=== PATIENT | female | born 1970 | race Caucasian/White ===

== ENCOUNTER 2016-12-08 13:48 | Emergency (ER) | payer OTHER ==
[2016-12-08 14:00] VITALS: BP 113/54; PULSE 71; RESP 18; TEMP 98.4
--- NOTE | 2016-12-08 14:59 | XR ---
EXAMINATION TYPE: XR foot complete LT DATE OF EXAM: 12/08/2016 2:44 PM COMPARISON: NONE HISTORY: 46-year-old female with pain, dropped 15 pound weight on forefoot, pain involving the tarsal s and first and second digits. TECHNIQUE: 3 views FINDINGS: There is mild hallux valgus with early bunion formation. Incidental bipartite tibial sesamoid. No acu te fracture, subluxation, or dislocation. Midfoot alignment is maintained. IMPRESSION: No acute osseous abnormality seen.
[2016-12-08] MEDS ORDERED: IBUPROFEN 600 MG TAB PO STA (15:07)
--- NOTE | 2016-12-08 15:08 | ED ---
General Adult HPI - General Chief complaint: Extremity Injury, Lower Stated complaint: foot injury Time Seen by Provider: 12/08/16 14:27 Source: patient, RN notes reviewed Mode of arrival: ambulatory Limitations: no limitations - History of Present Illness Initial comments: Patient 46-year-old female who presents emergency room today with a chief complaint of an injury to the left foot. Does admit she was working out today and asked family dropped to 15 pound weight onto her left great toe. Does admit pain locally. Denies any other complaints associated symptoms. Patient denies any recent fever, chills, shortness of breath, chest pain, back pain, abdominal pain, nausea or vomiting, numbness or tingling, dysuria or hematuria, constipation or diarrhea, headaches or visual changes, or any other complaints. - Related Data Home Medications Medication Instructions Recorded Confirmed Citalopram Hydrobromide [CeleXA] 40 mg PO DAILY 09/21/15 09/21/15 Previous Rx's Medication Instructions Recorded Ibuprofen [Motrin] 600 mg PO Q8HR PRN #30 tab 09/21/15 Ibuprofen [Motrin] 600 mg PO Q6HR PRN #40 day 12/08/16 Allergies Allergy/AdvReac Type Severity Reaction Status Date / Time amoxicillin Allergy Unknown Verified 12/08/16 13:59 Review of Systems ROS Statement: Those systems with pertinent positive or pertinent negative responses have been documented in the HPI. ROS Other: All systems not noted in ROS Statement are negative. Past Medical History Past Medical History: No Reported History History of Any Multi-Drug Resistant Organisms: None Reported Past Surgical History: Section, Cholecystectomy, Hysterectomy Past Psychological History: Depression Smoking Status: Former smoker Past Alcohol Use History: Rare Past Drug Use History: None Reported General Exam - General Exam Comments Initial Comments: General: The patient is awake and alert, in no distress, and does not appear acutely ill. Neck: The neck is supple, there is no tenderness or JVD. Cardiovascular: There is a regular rate and rhythm. No murmur, rub or gallop is appreciated. Respiratory: Lungs are clear to auscultation, respirations are non-labored, breath sounds are equal. No wheezes, stridor, rales, or rhonchi. Musculoskeletal: Patient does have moderate bruising swelling over the first and second digit of the left foot. Locally tender in these areas and at the MCP joint area. Patient's sensation intact pulses equal bilaterally 2+. Strength 5/5. Neurological: A&O x 3. CN II-XII intact, There are no obvious motor or sensory deficits. Coordination appears grossly intact. Speech is normal. Skin: Skin is warm and dry and no rashes or lesions are noted. Psychiatric: Normal mood and affect. Limitations: no limitations Course Vital Signs 12/08/16 13:57 Temperature 98.4 F Pulse Rate 71 Respiratory 18 Rate Blood Pressure 113/54 O2 Sat by Pulse 98 Oximetry Medical Decision Making - Medical Decision Making X-rays reviewed shows no acute fracture dislocation. Results were discussed with patient. Patient placed in postop shoe advised ice elevate and started on anti-inflammatories. Advised follow-up in 7-10 days if symptoms persist for repeat x-rays. Disposition Clinical Impression: Foot contusion Disposition: HOME SELF-CARE Condition: Good Instructions: Foot Contusion (ED) Additional Instructions: Please continue to ice elevate the affected areas 4 times daily for 20 minutes at a time. Please use ibuprofen for pain. Please follow-up in 7-10 days if symptoms persist for repeat x-rays. Prescriptions: Ibuprofen [Motrin] 600 mg PO Q6HR PRN #40 day PRN Reason: Pain Referrals: Royer Jacques DO [Primary Care Provider] - 1-2 days Yogesh Espinosa DO [Doctor of Osteopathic Medicine] - 1-2 days Time of Disposition: 15:07
== END 2016-12-08 15:19 | disposition home or self-care (01) ==
LOC: EC 13:48
DX: S90.32XA Contusion of left foot, initial encounter (principal); F32.9 Major depressive disorder, single episode, unspecified; Z87.891 Personal history of nicotine dependence; Z79.899 Other long term (current) drug therapy; Z88.0 Allergy status to penicillin; W20.8XXA Other cause of strike by thrown, projected or falling object, initial encounter; Y92.89 Other specified places as the place of occurrence of the external cause
CPT/HCPCS: 99283

== ENCOUNTER 2017-02-08 17:17 | Emergency (ER) | payer OTHER ==
[2017-02-08 17:36] VITALS: BP 117/55; PULSE 74; RESP 20; TEMP 97.5
[2017-02-08] MEDS ORDERED: methylPREDNISolone SOD SUCCI 125 MG/2 ML VIAL IM ONE (17:48)
[2017-02-08] MEDS ORDERED: hydrOXYzine HCL 25 MG TAB PO STA (18:00)
--- NOTE | 2017-02-08 18:18 | ED ---
General Adult HPI - General Chief complaint: Skin/Abscess/Foreign Body Stated complaint: Rash Time Seen by Provider: 02/08/17 17:40 Source: patient, RN notes reviewed Mode of arrival: ambulatory Limitations: no limitations - History of Present Illness Initial comments: Chief complaint history of present illness a 46-year-old female reports that she has extensive poison trudy rash. Proximally one week ago she was outside working on the shrubs and developed poison trudy which is now on her face chest arms. She's tried [id number] medications which aren't helping. She does have a history of being sensitive to poison trudy. - Related Data Home Medications Medication Instructions Recorded Confirmed Citalopram Hydrobromide [CeleXA] 40 mg PO HS 02/08/17 02/08/17 Dextroamphetamine/Amphetamine 30 mg PO QAM 02/08/17 02/08/17 [Adderall Xr] diphenhydrAMINE HCL [Benadryl] 25 mg PO Q6H PRN 02/08/17 02/08/17 Previous Rx's Medication Instructions Recorded hydrOXYzine HCL [Atarax] 25 mg PO TID PRN #15 tab 02/08/17 predniSONE 10 mg PO DAILY #31 tab 02/08/17 Allergies Allergy/AdvReac Type Severity Reaction Status Date / Time amoxicillin Allergy Unknown Verified 02/08/17 17:45 Review of Systems ROS Statement: Those systems with pertinent positive or pertinent negative responses have been documented in the HPI. Review of systems no change in visual acuity but she does have some irritation around the right eye. No shortness of breath no chest pain no nausea no vomiting no diarrhea. All systems are reviewed. Past medical problems none. The patient's surgeries include , cholecystectomy. Patient's family history has COPD and glaucoma. Patient has ALLERGIES to amoxicillin and poison trudy. The patient nonsmoker drinks alcohol socially. ROS Other: All systems not noted in ROS Statement are negative. Past Medical History Past Medical History: No Reported History History of Any Multi-Drug Resistant Organisms: None Reported Past Surgical History: Section, Cholecystectomy, Hysterectomy Past Psychological History: Depression Smoking Status: Former smoker Past Alcohol Use History: Rare Past Drug Use History: None Reported General Exam - General Exam Comments Initial Comments: General: The patient is awake and alert, moderate distress because of poison trudy on her arms chest small on her face. Vital signs show temperature 97.5 pulse 74 respiratory rate 20 pulse ox on percent room air blood pressure 117/55 Eye: No complaint of visual acuity problems or pain. She does have itching around her eyes. Neck: Several areas of poison trudy rash on her neck Cardiovascular: Areas of poison trudy on her chest but no complaint chest pain or palpitations Respiratory: Lungs clear to auscultation no wheezing. Musculoskeletal: Rash on upper or lower extremities, poison trudy. Skin: Extensive poison trudy rash. Limitations: no limitations Course Vital Signs 02/08/17 17:35 Temperature 97.5 F L Pulse Rate 74 Respiratory 20 Rate Blood Pressure 117/55 O2 Sat by Pulse 100 Oximetry Medical Decision Making - Medical Decision Making Medical decision-making. The patient received a shot of steroids in the emergency room as well as by mouth Atarax. At home she'll be placed on a decreasing dose of prednisone. Advised to use topical Caladryl. Wet washcloths is over the area in order to decrease itch. Disposition Clinical Impression: Poison trudy dermatitis Disposition: HOME SELF-CARE Condition: Fair Instructions: Contact Dermatitis (ED), Poison Trudy (ED) Additional Instructions: Take prednisone on a decreasing dose as directed over. At time. Use Caladryl to decrease itch. Try oatmeal baths. Follow-up with family physician. Use Atarax for itch Prescriptions: hydrOXYzine HCL [Atarax] 25 mg PO TID PRN #15 tab PRN Reason: Itchiness predniSONE 10 mg PO DAILY #31 tab Time of Disposition: 18:17
== END 2017-02-08 18:30 | disposition home or self-care (01) ==
LOC: EC 17:17
DX: L23.7 Allergic contact dermatitis due to plants, except food (principal); F32.9 Major depressive disorder, single episode, unspecified; Z87.891 Personal history of nicotine dependence; Z79.899 Other long term (current) drug therapy; Z88.0 Allergy status to penicillin
CPT/HCPCS: 99282; 96372; J2930

== ENCOUNTER → 2018-02-02 | Outpatient (CLI) | payer OTHER ==
--- NOTE | 2018-02-04 08:05 | MM ---
Reason for exam: screening (asymptomatic). History: Patient is postmenopausal. Benign excisional biopsy of the right breast, 1995. Physical Findings: A clinical breast exam by your physician is recommended on an annual basis and results should be correlated with mammographic findings. MG Screening Mammo w CAD Bilateral CC and MLO view(s) were taken. No prior studies available for comparison. The breast tissue is heterogeneously dense. This may lower the sensitivity of mammography. 1.8cm mass posterior lower inner quadrant left breast. Otherwise, no discrete abnormality. ASSESSMENT: Incomplete: need additional imaging evaluation, BI-RAD 0 RECOMMENDATION: Special view mammogram of the left breast. If lesion persists on supplemental views, image directed ultrasound is recommended. [facility] will attempt to contact patient to return for supplemental views and ultrasound if indicated.
== END | disposition home or self-care (01) ==
LOC: RADMAMWWP 07:33
PROVIDERS: ATTEND Family Medicine
DX: Z12.31 Encounter for screening mammogram for malignant neoplasm of breast (principal)
CPT/HCPCS: 77067

== ENCOUNTER → 2018-02-10 | Outpatient (CLI) | payer OTHER ==
--- NOTE | 2018-02-10 10:25 | MM ---
Reason for exam: additional evaluation requested from abnormal screening. Last mammogram was performed less than 1 month ago. History: Patient is postmenopausal. Benign excisional biopsy of the right breast, 1995. Physical Findings: Nurse did not find any significant physical abnormalities on exam. MG Work Up Mamm w CAD LT Spot compression CC, spot compression ML, and LM view(s) were taken of the left breast. Prior study comparison: February 02, 2018, bilateral MG screening mammo w CAD. Finding: There is a 18 mm equal density (isodense), oval mass in the lower inner quadrant of the left breast. These results were verbally communicated with the patient and result sheet given to the patient on 02/10/18. ASSESSMENT: Incomplete: need additional imaging evaluation, BI-RAD 0 RECOMMENDATION: Ultrasound of the left breast.
--- NOTE | 2018-02-10 10:28 | USB ---
Reason for exam: additional evaluation requested from abnormal screening. History: Patient is postmenopausal. Benign excisional biopsy of the right breast, 1995. US Breast Workup Limited LT Left breast ultrasound demonstrates a 0.8 x 0.5 x 1.0cm lobular, solid, hypoechoic lesion at the posterior nipple. These results were verbally communicated with the patient and result sheet given to the patient on 02/10/18. ASSESSMENT: Suspicious, BI-RAD 4 RECOMMENDATION: Ultrasound core biopsy of the left breast. Called Dr. Jacques's office with mammographic findings and has scheduled an appointment for the patient for 02/25/18 at 10:[address] Cervantes. Biopsy scheduled for 02/11/18 at 10:00. PRELIMINARY REPORT CALLED AND FAXED TO DR. CERVANTES ON 02/10/18.
== END | disposition home or self-care (01) ==
LOC: RADMAMWWP 08:17
PROVIDERS: ATTEND Family Medicine
DX: R92.8 Other abnormal and inconclusive findings on diagnostic imaging of breast (principal)
CPT/HCPCS: 77065

== ENCOUNTER → 2018-02-10 | Outpatient (CLI) | payer OTHER ==
--- NOTE | 2018-02-10 09:49 | US ---
EXAMINATION TYPE: US abdomen limited DATE OF EXAM: 02/10/2018 COMPARISON: US & CT CLINICAL HISTORY: Abnormal Liver Functions Results R94.5. Elevated LFT's EXAM MEASUREMENTS: Liver Length: 15.7 cm CBD: 0.8 cm Right Kidney: 11.8 x 4.4 x 4.7 cm Pancreas: Limited by bowel gas. Visualized portions of the pancreatic head within normal limits. Liver: No evidence of mass. Mild coarsened pattern to the liver. Gallbladder: Surgically absent Evidence for sonographic Francisco's sign: No CBD: wnl for post jasmin Right Kidney: wnl, lower pole gassed out IMPRESSION: 1. Postcholecystectomy changes with no definite acute process. 2. Mildly coarsened pattern to the liver may be related to mild fatty infiltration or hepatitis corre late clinically
== END ==
LOC: RADUSWWP 08:14
PROVIDERS: ATTEND Family Medicine
DX: R94.5 Abnormal results of liver function studies (principal); Z90.49 Acquired absence of other specified parts of digestive tract
CPT/HCPCS: 76705

== ENCOUNTER → 2018-02-11 | Day surgery (SDC) | payer OTHER ==
[2018-02-11 09:39] VITALS: BP 122/57; PULSE 64; RESP 16; TEMP 98.5; BMI 26.7
--- NOTE | 2018-02-11 14:46 | USB ---
EXAMINATION TYPE: US biopsy breast add'l VAD LT, US biopsy breast VAD LT, MG diagnostic mammo LT wo CAD DATE OF EXAM: 02/11/2018 CLINICAL HISTORY: R92.8 ABNORMAL MAMMOGRAM. TECHNIQUE: Ultrasound guided core biopsy of left breast. COMPARISON: Exams dating back to 02/02/2018 FINDINGS: Preprocedural ultrasound redemonstrated the retroareolar 0.8 x 0.5 x 1.0 cm hypoechoic lesion within the left breast for which biopsy was recommended on the exam of 02/10/2018 (site B). However, when comparing this to the mammographic density seen on the exam of 02/10/2018 this appears to be unrelated as the mammographic density posterior depth. Therefore further preprocedural scanning was performed. Additional abnormality at posterior depth was also seen at the 6:00 position and discussion of 2 site biopsy was had with the patient for which the patient consented (site A). The procedure of ultrasound guided core biopsy was explained to the patient. Benefits, alternatives, and risks were discussed. An informed consent was then obtained. Preprocedural timeout was performed. Site A: The patient was placed in supine positioning for imaging and for the procedure. The overlying skin was prepped and draped in usual sterile fashion. 10 cc of lidocaine was used as anesthetic into the skin and subcutaneous tissue up to the deeper lesion at the 6:00 position within the left breast corresponding to the mammographic focal asymmetry. Under ultrasound guidance, a 12-gauge vacuum assisted biopsy gun device was used to obtain 5 core samples. Following this, a ribbon-shaped biopsy marker was left in lesion. Site B: The patient was placed in supine positioning for imaging and for the procedure. The overlying skin was prepped and draped in usual sterile fashion. Lidocaine buffered with bicarbonate was used as anesthetic into the skin and subcutaneous tissue up to the 0.8 x 0.5 x 1.0 cm retroareolar left breast mass. Under ultrasound guidance, a 12-gauge vacuum assisted biopsy gun device was used to obtain 4 core samples. Following this, a coil-shaped biopsy marker was left in lesion. The patient tolerated the procedure well without any immediate complication. The patient was kept in the radiology department for short stay after the procedure and then discharged home in stable condition. Post procedure mammogram demonstrated both clips in appropriate position without migration. IMPRESSION: Successful, uncomplicated two site ultrasound guided core biopsy of area of concern in the left breast, full pathology results to follow. Note that site A corresponds to the mammographic focal asymmetry. Pathology Results: Benign A. BREAST, LEFT, SITE 1 ZONE C SIX O'CLOCK, CORE BIOPSY: PROLIFERATIVE FIBROCYSTIC CHANGES INCLUDING FIBROADENOMATOID HYPERPLASIA, SCLEROSING ADENOSIS , CYSTS AND MICROCALCIFICATIONS. PSEUODANGIOMATOUS STROMAL HYPERPLASIA (PASH). B. BREAST, LEFT, SITE 2 ZONE A SIX O'CLOCK CORE BIOPSY: FIBROCYSTIC CHANGES INCLUDING CYSTS, APOCRINE METAPLASIA, FIBROSIS AND RARE MICROCALCIFICATIONS. Recommendation Follow up ultrasound of the left breast in 6 months. MTDD
== END | disposition home or self-care (01) ==
LOC: RADUSWWP 08:56
PROVIDERS: ATTEND Surgery
DX: N64.89 Other specified disorders of breast (principal); N60.22 Fibroadenosis of left breast; N60.12 Diffuse cystic mastopathy of left breast; N60.82 Other benign mammary dysplasias of left breast; Z88.0 Allergy status to penicillin
CPT/HCPCS: 88305; 88342; 88341; 77065; 19083; 19084; A4648; J2001

== ENCOUNTER 2018-04-22 00:03 | Emergency (ER) | payer OTHER ==
[2018-04-22 00:15] VITALS: TEMP 98.8
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
[2018-04-22 01:08] VITALS: BP 139/79; PULSE 84; RESP 20
== END 2018-04-22 00:50 | disposition home or self-care (01) ==
LOC: EC 00:03
DX: S80.212A Abrasion, left knee, initial encounter (principal); F32.9 Major depressive disorder, single episode, unspecified; F41.9 Anxiety disorder, unspecified; F90.9 Attention-deficit hyperactivity disorder, unspecified type; Z87.891 Personal history of nicotine dependence; Z88.0 Allergy status to penicillin; V49.49XA Driver injured in collision with other motor vehicles in traffic accident, initial encounter; Y92.410 Unspecified street and highway as the place of occurrence of the external cause
CPT/HCPCS: 99284

== ENCOUNTER → 2018-10-27 | Outpatient (CLI) | payer OTHER ==
--- NOTE | 2018-10-27 15:57 | XR ---
EXAMINATION TYPE: XR shoulder complete RT DATE OF EXAM: 10/27/2018 CLINICAL HISTORY: Pain after lifting injury. TECHNIQUE: Three views of the right shoulder are obtained. COMPARISON: Right humerus x-ray September 21, 2015 FINDINGS: There is no acute fracture/dislocation evident in the right shoulder. The acromioclavicul ar and glenohumeral joint spaces appear within normal limits. The visualized ribs are intact and unr emarkable. IMPRESSION: There is no acute fracture or dislocation in the right shoulder.
== END | disposition home or self-care (01) ==
LOC: RADXRMAIN 15:27
PROVIDERS: ATTEND Emergency Medicine
DX: S43.401A Unspecified sprain of right shoulder joint, initial encounter (principal); R20.9 Unspecified disturbances of skin sensation

== ENCOUNTER → 2018-11-05 | Outpatient (CLI) | payer OTHER ==
--- NOTE | 2018-11-06 14:46 | MR ---
EXAMINATION TYPE: MR shoulder RT wo con DATE OF EXAM: 11/05/2018 COMPARISON: X-ray 10/27/2018 HISTORY: Injured rt shoulder throwing out garbage 2 wks ago TECHNIQUE: Multiplanar, multisequence imaging of the right shoulder is performed without contrast. FINDINGS: Rotator Cuff: There is edema signal at the musculotendinous junction of the supraspinatus tendon comp atible tendinopathy and intramuscular strain. No through thickness tear. No retraction of any of the rotator cuff tendons. Acromioclavicular Joint: There is AC joint hypertrophy with mild impingement of the musculotendinous junction of the supraspinatus muscle. Glenohumeral Joint: Joint space preserved. No sizable joint effusion. Glenohumeral ligaments intact. Labrum: The labrum appears grossly intact given limitation of non-arthrogram study. Biceps Tendon: The long head of biceps is in normal location within bicipital groove. Bone marrow signal: A tiny cystic areas involving the humeral head and the related to chronic impinge ment or reactive. IMPRESSION: There is edema involving the musculotendinous junction of the supraspinatus compatible tendinosis and intramuscular strain. Impingement secondary to hypertrophy of the AC joint.
== END | disposition home or self-care (01) ==
LOC: RADMRIMAIN 20:27
PROVIDERS: ATTEND Emergency Medicine
DX: M25.811 Other specified joint disorders, right shoulder (principal); R20.9 Unspecified disturbances of skin sensation

== ENCOUNTER 2024-07-23 22:32 | Inpatient (IN) | payer BC, OTHER ==
[2024-07-23 22:37] LABS: Glucose,Whole Blood 101 mg/dL (70-110)
[2024-07-23] MEDS: SODIUM CHLORIDE 0.9% 1,000 ML IV STA (22:46)
[2024-07-23 22:48] LABS: Basophils % (A) 0 %; Eosinophils # (A) 0.3 k/uL (0-0.7); Eosinophils % (A) 3 %; HCT 42.1 % (34.0-46.0); HGB 13.7 gm/dL (11.4-16.0); Lymphocytes # (A) 2.1 k/uL (1.0-4.8); Lymphocytes % (A) 25 %; MCH 29.8 pg (25.0-35.0); MCHC 32.5 g/dL (31.0-37.0); MCV 91.9 fL (80.0-100.0); Mean Platelet Volume 7.5; Monocytes # (A) 0.5 k/uL (0-1.0); Monocytes % (A) 5 %; Neutrophils # (A) 5.5 k/uL (1.3-7.7); Neutrophils % (A) 65 %; Platelet Count 344 k/uL (150-450); RBC 4.59 m/uL (3.80-5.40); RDW 12.3 % (11.5-15.5); WBC 8.5 k/uL (3.8-10.6)
[2024-07-23 23:02] LABS: ALT 17 U/L (4-34); Acetaminophen <10.0 ug/mL; African American GFR (CKD) >90 (>60 ml/min/1.73 sqM); Alcohol <10 mg/dL; Anion Gap 5 mmol/L; Blood Urea Nitrogen 10 mg/dL (7-17); Calcium 9.4 mg/dL (8.4-10.2); Carbon Dioxide 29 mmol/L (22-30); Chloride 105 mmol/L (98-107); Glucose 105 mg/dL (74-99); Non-African American GFR(CKD) >90 (>60 ml/min/1.73 sqM); Salicylate <1.0 mg/dL; Sodium 139 mmol/L (137-145); Total Bilirubin 0.7 mg/dL (0.2-1.3); Total Protein 6.4 g/dL (6.3-8.2)
[2024-07-23 23:10] LABS: AST 28 U/L (14-36); Alkaline Phosphatase 57 U/L (38-126); Potassium 3.7 mmol/L (3.5-5.1)
[2024-07-23 23:23] LABS: Amphetamine Screen,Urine Not Detected (NotDetected); Barbiturate Screen,Urine Not Detected (NotDetected); Benzodiazepines Screen,Urine Not Detected (NotDetected); Cocaine Screen,Urine Not Detected (NotDetected); Methadone Screen, Urine Not Detected (NotDetected); Opiate Screen,Urine Not Detected (NotDetected); Oxycodone Screen, Urine Not Detected (NotDetected); Phencyclidine Screen,Urine Not Detected (NotDetected); Tricyclic Antidepressant,Urine Not Detected (NotDetected); Urn Cannabinoid Scrn Detected (NotDetected)
[2024-07-24] MEDS ORDERED: NALOXONE 0.4 MG/ML 1 ML VIAL IV PRN (00:57)
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
[2024-07-24] MEDS: SODIUM CHLORIDE 0.9% 1,000 ML IV SCH (01:09)
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
--- NOTE | 2024-07-24 14:38 | P.CN ---
Psychiatric Consult - . Consult date: 07/24/24 Consult:: 07/24/24 13:24 IDENTIFYING DATA: This patient is a 54-year-old female, currently lives with her in a house, they also live with one of her kids. She claims that she has a total of 4 kids. Currently works at the hotel as a first front ventilator. REASON FOR REFERRAL: Psychiatry was consulted for suicide attempt by overdose HISTORY OF PRESENT ILLNESS: The patient presented to the hospital initially on 07/24 with intentional overdose on Wellbutrin. According to ER report patient apparently texted her sister after the overdose and claimed that it was a suicide attempt. EMS was immediately called and brought her into the hospital. Patient did not describe the quantity of Wellbutrin that she took. Urine drug send is positive for THC. Patient was seen laying in bed today agreeable to speak to teletypewriter installer. She was fairly vague guarded, claims that she did try to commit suicide. States that she has been diagnosed with several different mental health diagnoses in the past and does not know which one she has. Claims that she has been given way too many pills in the past. States that she is upset at her and claims that a "girl was sending me pictures" of herself and her , she suspects that maybe her is cheating on her. Claims that she never got to confront her about it. States that she has been feeling overwhelmed, depressed. Also endorsing anxiety. States that the girl h as been harassing her putting different pictures on her over the Internet and Facebook. Claims that after the overdose she tried to just go to sleep. At this time patient denies any homical ideations, intent or plan. Patient denies any auditory, visual hallucinations and denies any paranoia or delusions. She is currently endorsing suicidal thoughts, no intent or plan. Patients admits to using marijuana daily heavily. Denies any other recreational drug use PAST PSYCHIATRIC HISTORY: Patient has a a history of unknown psychiatric illness. Patient is currently on Wellbutrin, unknown dose. States that she was last psychiatrically admitted to the mental health unit in [facility] 31 years ago. Patient denies any psychiatric outpatient follow-up. States that she overdosed on pills 31 years ago. PAST MEDICAL HISTORY: Past Medical History: No Reported History History of Any Multi-Drug Resistant Organisms: None Reported Past Surgical History: Section, Cholecystectomy, Hysterectomy Past Anesthesia/Blood Transfusion Reactions: No Reported Reaction Past Psychological History: ADD/ADHD, Anxiety, Depression Past Alcohol Use History: Occasional Past Drug Use History: None Reported ALLERGIES: as per EMR. CHEMICAL DEPENDENCY HISTORY: as per HPI. FAMILY PSYCHIATRIC/SUBSTANCE USE HISTORY: That her brother and also mother has some form of mental illness SOCIAL HISTORY: Patient was born and raised in [facility]. She states that she completed high school and did some college, claims that she did go to snf once in the past for unpaid tickets. States that she has 4 kids, currently is with her and 1 child. She currently works at a hotel at the front tender. MENTAL STATUS EXAM: General Appearance: Patient appears to be somewhat sleepy, stated age is vague and guarded. Patient appears to have fair hygiene and grooming wearing hospital gown with poor eye contact. Behavior: Patient is calmly lying in bed without any agitated behavior. Vague. Speech: Patient's speech is fluent and nonpressured. Mood/Affect: Patient reports their mood is "depressed anxious", affect is congruent and constricted Suicidality/Homicidality: Patient denies having any suicidal or homicidal ideation intent or plan. Perceptions: Patient denies any visual hallucinations and denies any auditory hallucinations Though content/process: There is no evidence of any delusional thought content and thought process is linear and goal-directed. [place]. Poverty of content Memory and concentration: AOX3, grossly intact for the purposes of this session. Can spell "WORLD" backwards Judgment and insight: Poor IMPRESSIONS: Suicide attempt by overdose on psychiatric medications Mood disorder unspecified, rule out bipolar disorder versus major depressive disorder Cannabis use disorder PLAN: -At this time patient DOES meet criteria for inpatient psychiatric admission. -Would recommend the following medication changes/additions: Will hold off on psychiatric medications until patient is medically cleared and admitted to the mental health unit. -Continue 1:1 sitter for safety till patient is safely transferred to the mental health unit. -Cannot leave AMA at this time. Patient will need a petition and certification if attempting to leave AMA. -Internal Auditor spoke with patient about substance abuse and the harmful effects on medical and mental health, patient verbally understood and agreed. -When medically stable, patient is eligible for transfer to a psych bed when available. -Communicated plan to patient's nurse -Psychiatry will sign off at this time -Please contact with any questions. 07/24/24 14:33 07/24/24 14:36
--- NOTE | 2024-07-24 15:06 | P.PN ---
Progress Note - Text Progress Note Date: 07/24/24 (delayed charting seen at 1000) Seen and examined at bedside in the emergency department endorses taking excess buprenorphine and Benadryl in the hope to attempt to take her life. Reports a headache and lethargy. Denies nausea, vomiting, or abdominal pain. Case discussed with nursing. Will order one-to-one sitter. Monitor on telemetry for 24 hours. For progress note from this date see H&P.
[2024-07-24] MEDS: ACETAMINOPHEN TAB 325 MG TAB PO PRN (18:15)
[2024-07-25 08:44] LABS: Basophils # (A) 0.05 X 10*3/uL (0.00-0.10); Basophils % (A) 1.1 %; Eosinophils # (A) 0.22 X 10*3/uL (0.04-0.35); Eosinophils % (A) 4.7 %; HCT 42.7 % (37.2-46.3); HGB 13.7 g/dL (12.0-15.0); Lymphocytes # (A) 1.33 X 10*3/uL (0.90-5.00); Lymphocytes % (A) 28.1 %; MCH 29.9 pg (27.0-32.0); MCHC 32.1 g/dL (32.0-37.0); MCV 93.2 FL (80.0-97.0); Monocytes # (A) 0.42 X 10*3/uL (0.20-1.00); Monocytes % (A) 8.9 %; NRBC Per 100 WBC 0 X 10*3/uL (0.00-0.01); Platelet Count 293 X 10*3/uL (140-440); RBC 4.58 X 10*6/uL (4.10-5.20); RDW 12.3 % (11.5-14.5); WBC 4.73 X 10*3/uL (4.50-10.00)
[2024-07-25 08:56] LABS: Blood Urea Nitrogen 4.2 mg/dL (9.0-27.0); Carbon Dioxide 26.6 mmol/L (21.6-31.8); Chloride 107 mmol/L (96-109); Glucose 84 mg/dL (70-110); Potassium 4.2 mmol/L (3.5-5.5); Sodium 143 mmol/L (135-145)
--- NOTE | 2024-07-25 13:38 | P.DS ---
Providers Date of admission: 07/24/24 00:57 Expected date of discharge: 07/25/24 Attending physician: Machelle Brandt MD Consults: 07/24/24 00:57 Consult Physician Urgent Consulting Provider: Maximilian Trujillo Consult Reason/Comments: suicide attempt Do you want consulting provider notified?: Yes Primary care physician: Stated None Hospital Course: 54 year old F with PMH of depression presents to the ED after overdosing on Bupropion. In the ED she underwent extensive evaluation. BP 152/86, HR 62, T 97F, RR 16, 96% on RA. CBC and CMP significant for glu 105. Mag 1.7. HGC negative. UDS + THC. Salicylate, Acetaminophen, EtOH negative. EKG sinus rhythm QTc 421. Patient admitted to the medical floor. Evaluated by psychiatry with recommendations for inpatient psyc. 07/25 Patient was seen and examined. No complaints. CBC and BMP significant for BUN 4.2, BUN/Cr 6. Plans for discharge to mental health. General: non toxic, no distress, appears at stated age Derm: warm, dry Head: atraumatic, normocephalic, symmetric Eyes: EOMI, no lid lag, anicteric sclera Mouth: no lip lesion, mucus membranes moist Cardiovascular: good distal perfusion in all 4 extremities Lungs: breathing comfortably, no accessory muscle use Ext: no gross muscle atrophy, no edema, no contractures Psych: Alert, oriented, appropriate affect, tearful Discharge Diagnosis: Bupropion overdose History of anxiety/depression This complex discharge took 35 minutes to complete. Patient Condition at Discharge: Stable Plan - Discharge Summary New Discharge Prescriptions: Discontinued buPROPion XL [Wellbutrin XL] 300 mg PO DAILY Follow up Appointment(s)/Referral(s): [facility] [NON-STAFF] - 1 Week [facility] [NON-STAFF] - 1 Week None,Stated [Primary Care Provider] - 1-2 days Discharge/Stand Alone Forms: Area PCPs
[2024-07-25] MEDS ORDERED: LORazepam 1 MG TAB PO PRN (20:11)
[2024-07-25] MEDS ORDERED: MAG HYDROX/AL HYDROX/SIMETH 355 ML BOTTLE PO PRN (20:11)
[2024-07-25] MEDS ORDERED: MAGNESIUM HYDROXIDE 2,400 MG/30 ML CUP PO PRN (20:11)
[2024-07-25] MEDS ORDERED: ACETAMINOPHEN TAB 325 MG TAB PO PRN (20:11)
[2024-07-25] MEDS ORDERED: LORazepam 2 MG/ML INJ IM PRN (20:11)
[2024-07-25] MEDS ORDERED: traZODone HCL 50 MG TAB PO PRN (20:11)
[2024-07-26 08:06] LABS: ALT 15 U/L (4-34); AST 24 U/L (14-36); Albumin 4.1 g/dL (3.5-5.0); Alkaline Phosphatase 63 U/L (38-126); Bilirubin, Delta 0.2 mg/dL (0.0-0.2); Bilirubin,Unconjugated 0.8 mg/dL (0.0-1.1); Total Protein 6.6 g/dL (6.3-8.2)
--- NOTE | 2024-07-26 12:33 | P.HP ---
Psychiatric H&P - . H&P Date: 07/26/24 History & Physical: Allergies Allergy/AdvReac Type Severity Reaction Status Date / Time amoxicillin Allergy Unknown Verified 07/24/24 09:23 Vital Signs Temp 98.6 F 07/26/24 06:55 Pulse 69 07/26/24 06:55 Resp 16 07/26/24 06:55 BP 111/57 07/26/24 06:55 Pulse Ox 99 07/26/24 06:55 FiO2 Intake & Output 07/25/24 07/26/24 07/26/24 18:59 06:59 18:59 Weight 74.843 kg Laboratory Last Values WBC 4.73 X 10*3/uL (4.50-10.00) 07/25/24 05:38 RBC 4.58 X 10*6/uL (4.10-5.20) 07/25/24 05:38 Hgb 13.7 g/dL (12.0-15.0) 07/25/24 05:38 Hct 42.7 % (37.2-46.3) 07/25/24 05:38 MCV 93.2 FL (80.0-97.0) 07/25/24 05:38 MCH 29.9 pg (27.0-32.0) 07/25/24 05:38 MCHC 32.1 g/dL (32.0-37.0) 07/25/24 05:38 RDW 12.3 % (11.5-14.5) 07/25/24 05:38 Plt Count 293 X 10*3/uL (140-440) 07/25/24 05:38 MPV 10.0 FL (9.5-12.2) 07/25/24 05:38 Immature Gran % (Auto) 0.20 % 07/25/24 05:38 Absolute Nucleated RBC 0 % 07/25/24 05:38 Neutrophils % 57.0 % 07/25/24 05:38 Lymphocytes % 28.1 % 07/25/24 05:38 Monocytes % 8.9 % 07/25/24 05:38 Eosinophils % 4.7 % 07/25/24 05:38 Basophils % 1.1 % 07/25/24 05:38 Immature Gran # 0.01 X 10*3/uL (0.00-0.04) 07/25/24 05:38 Neutrophils # 2.70 X 10*3/uL (1.80-7.70) 07/25/24 05:38 Lymphocytes # 1.33 X 10*3/uL (0.90-5.00) 07/25/24 05:38 Monocytes # 0.42 X 10*3/uL (0.20-1.00) 07/25/24 05:38 Eosinophils # 0.22 X 10*3/uL (0.04-0.35) 07/25/24 05:38 Basophils # 0.05 X 10*3/uL (0.00-0.10) 07/25/24 05:38 NRBC/100 WBC Diff 0 X 10*3/uL (0.00-0.01) 07/25/24 05:38 Sodium 143 mmol/L (135-145) 07/25/24 05:38 Potassium 4.2 mmol/L (3.5-5.5) 07/25/24 05:38 Chloride 107 mmol/L (96-109) 07/25/24 05:38 Carbon Dioxide 26.6 mmol/L (21.6-31.8) 07/25/24 05:38 Anion Gap 9.40 mmol/L (4.00-12.00) 07/25/24 05:38 BUN 4.2 mg/dL (9.0-27.0) L 07/25/24 05:38 Creatinine 0.7 mg/dL (0.6-1.5) 07/25/24 05:38 Est GFR (CKD-EPI) 104 (>=60) 07/25/24 05:38 Est GFR (CKD-EPI)AfAm >90 (>60 ml/min/1.73 sqM) 07/23/24 22:43 Est GFR (CKD-EPI)NonAf >90 (>60 ml/min/1.73 sqM) 07/23/24 22:43 BUN/Creatinine Ratio 6.00 Ratio (12.00-20.00) L 07/25/24 05:38 Glucose 84 mg/dL (70-110) 07/25/24 05:38 POC Glucose (mg/dL) 101 mg/dL (70-110) 07/23/24 22:36 POC Glu Reproduction Artist SANA Mccormick 07/23/24 22:36 Plasma Lactic Acid Robbie 1.0 mmol/L (0.7-2.0) 07/23/24 22:43 Calcium 9.0 mg/dL (8.7-10.3) 07/25/24 05:38 Magnesium 1.7 mg/dL (1.6-2.3) 07/23/24 22:57 Total Bilirubin 1.0 mg/dL (0.2-1.3) 07/26/24 07:21 Conjugated Bilirubin 0.0 mg/dL (0.0-0.3) 07/26/24 07:21 Unconjugated Bilirubin 0.8 mg/dL (0.0-1.1) 07/26/24 07:21 Delta Bilirubin 0.2 mg/dL (0.0-0.2) 07/26/24 07:21 AST 24 U/L (14-36) 07/26/24 07:21 ALT 15 U/L (4-34) 07/26/24 07:21 Alkaline Phosphatase 63 U/L (38-126) 07/26/24 07:21 Total Protein 6.6 g/dL (6.3-8.2) 07/26/24 07:21 Albumin 4.1 g/dL (3.5-5.0) 07/26/24 07:21 TSH 1.380 mIU/L (0.465-4.680) 07/26/24 07:21 Urine HCG, Qual Not Detected (Not Detectd) 07/23/24 22:57 Salicylates <1.0 mg/dL 07/23/24 22:43 Urine Opiates Screen Not Detected (NotDetected) 07/23/24 22:57 Ur Oxycodone Screen Not Detected (NotDetected) 07/23/24 22:57 Urine Methadone Screen Not Detected (NotDetected) 07/23/24 22:57 Acetaminophen <10.0 ug/mL 07/23/24 22:43 Ur Barbiturates Screen Not Detected (NotDetected) 07/23/24 22:57 U Tricyclic Antidepress Not Detected (NotDetected) 07/23/24 22:57 Ur Phencyclidine Scrn Not Detected (NotDetected) 07/23/24 22:57 Ur Amphetamines Screen Not Detected (NotDetected) 07/23/24 22:57 U Methamphetamines Scrn Not Detected (NotDetected) 07/23/24 22:57 U Benzodiazepines Scrn Not Detected (NotDetected) 07/23/24 22:57 Urine Cocaine Screen Not Detected (NotDetected) 07/23/24 22:57 U Marijuana (THC) Screen Detected (NotDetected) H 07/23/24 22:57 Serum Alcohol <10 mg/dL 07/23/24 22:43 SARS-CoV-2 (PCR) Not Detected (Not Detectd) 07/25/24 17:13 07/26/24 09:14 IDENTIFYING DATA: Patient is a This patient is a 54-year-old female, currently lives with her in a house, they also live with one of her kid s. She claims that she has a total of 4 kids. 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 HPI: The patient presented to the hospital initially on 07/24 with intentional overdose on Wellbutrin. Psychology was consulted, as per consult note, "According to ER report patient apparently texted her sister after the overdose and claimed that it was a suicide attempt. EMS was immediately called and brought her into the hospital. Patient did not describe the quantity of Wellbutrin that she took. Urine drug send is positive for THC. Patient was seen laying in bed today agreeable to speak to medical writer. She was fairly vague guarded, claims that she did try to commit suicide. States that she has been diagnosed with several different mental health diagnoses in the past and does not know which one she has. Claims that she has been given way too many pills in the past. States that she is upset at her and claims that a "girl was sending me pictures" of herself and her , she suspects that maybe her is cheating on her. Claims that she never got to confront her about it. States that she has been feeling overwhelmed, depressed. Also endorsing anxiety. States that the girl has been harassing her putting different pictures on her over the Internet and Facebook. Claims that after the overdose she tried to just go to sleep. At this time patient denies any homical ideations, intent or plan. Patient denies any auditory, visual hallucinations and denies any paranoia or delusions. She is currently endorsing suicidal thoughts, no intent or plan. Patients admits to using marijuana daily heavily. Denies any other recreational drug use". Upon today's assessment, patient was seen resting in her room, and agreeable to speak to the medical writer in the office. She states that what caused this incident is that someone who is infatuated with her was harassing her online and through text. She tried talking to her , and that wasn't going well, so she took all her medicine. She called her sister and told her good bye. Then she woke up in the hospital. She took wellbutrin and benedryl. She states it was an attempt at suicide. She thought the pills would stop her heart. She is frustrated and depressed, and don't want to feel like this anymore. She endorses anxiety. She states her appetite is not that great, and has not been for good for a year. She states she wants to feel better, and is agreeable to treatment. PAST PSYCHIATRIC HISTORY: Patient has a a history of unknown psychiatric illness. Patient is currently on Wellbutrin, unknown dose. States that she was last psychiatrically admitted to the mental health unit in [facility] 31 years ago. Patient denies any psychiatric outpatient follow-up. States that she overdosed on pills 31 years ago. PMH:As per ER note ALLERGIES: as per EMR CHEMICAL DEPENDENCY HISTORY: as per HPI FAMILY PSYCHIATRIC/SUBSTANCE USE HISTORY: That her brother and also mother has some form of mental illness SOCIAL HISTORY: Patient was born and raised in [facility]. She states that she completed high school and did some college, claims that she did go to skilled nursing once in the past for unpaid tickets. States that she has 4 kids, currently is with her and 1 child. 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 MENTAL STATUS EXAM: General Appearance: Patient appears to be somewhat sleepy, stated age Cooperative. Patient appears to have fair hygiene and grooming wearing hospital gown with adequate eye contact. Behavior: Patient is calmly seated without any agitated behavior. Speech: Patient's speech is fluent and nonpressured. Mood/Affect: Patient reports their mood is "depressed, anxious", affect is congruent and constricted Suicidality/Homicidality: Patient denies having any suicidal or homicidal ideation intent or plan. Perceptions: Patient denies any visual hallucinations and denies any auditory hallucinations Though content/process: There is no evidence of any delusional thought content and thought process is linear and goal-directed. Memory and concentration: AOX3, grossly intact for the purposes of this session. Can spell "WORLD" backwards Judgment and insight: fair STRENGTHS/WEAKNESSES: strength is that patient is [resilient]. Weakness is that patient [has poor judgment and is impulsive] INTELLECT: [average] IMPRESSIONS: Suicide attempt by overdose on psychiatric medications Mood disorder unspecified, rule out bipolar disorder versus major depressive disorder Cannabis use disorder PLAN: -Patient is admitted under [voluntary] status to MHU for stabilization of psychiatric symptoms and safety. Patient has signed adult voluntary form and medication consent and is placed in patient's chart. -Medications : Will start patient on Zoloft 50mg daily for depression/anxiety, trazodone 25mg qhs prn for sleep, seroquel 25mg qhs for sleep/mood -Ativan [and Haldol] PRN for agitation/aggression [-Patient was counselled on substance abuse and desired to cut back on use] -Patient was informed of the risks, benefits and side effects of the medication [and patient verbally consented to taking the medications. ] -Internal Medicine consult to perform medical evaluation and physical. -NRT - [nicotine patch] -SW on board for discharge planning. Encourage patient to participate in groups to work on coping skills. 07/26/24 12:04 07/26/24 12:31
[2024-07-26] MEDS: SERTRALINE 50 MG TAB PO SCH (13:27)
[2024-07-26] MEDS: NICOTINE 14MG/24HR PATCH TRANSDERM SCH (13:28)
[2024-07-26 15:32] LABS: Chol/HDL Ratio 3.39 Ratio; LDL Cholesterol,Calculated 130.8 mg/dL (0.0-131.0); VLDL Calculation 15.84 mg/dL (5.00-40.00)
[2024-07-26] MEDS ORDERED: QUEtiapine 50 MG TAB PO SCH (21:00)
[2024-07-26] MEDS: QUEtiapine 25 MG TAB PO SCH (21:09)
--- NOTE | 2024-07-27 00:33 | P.CONS ---
History of Present Illness - Reason for Consult Consult date: 07/26/24 - History of Present Illness The patient is a 54-year-old female with a PMH of anxiety and depression who had presented to the emergency room after intentional overdose on bupropion. The patient was initially admitted to the medicine service for monitoring and was subsequently transferred to the mental health unit where she was seen and evaluated while accompanied by a MHU RN. The patient reported feeling well at the time of interview and had no active complaints. She did report mild chronic low back pain which is unchanged. She also reported using marijuana Gummies occasionally and drinking alcohol socially but notes that she is not a daily drinker. Denies tobacco use. Denies experiencing chest discomfort, shortness breath, fever, chills, cough, nausea, vomiting, abdominal pain, diarrhea. Review of systems: Pertinent positives and negatives as discussed in HPI, a complete review of systems was performed and all other systems are negative. Physical examination: General: non toxic, no distress, appears at stated age, normal weight Derm: no unusual rashes/lesions, no unusual ecchymoses, warm, dry Head: atraumatic, normocephalic, symmetric Eyes: EOMI, no lid lag, anicteric sclera ENT: Nose and ears atraumatic, no thrush, no pharyngeal erythema Neck: trachea midline, supple Mouth: no lip lesion, mucus membranes moist Cardiovascular: S1S2 reg, no murmur, no edema Lungs: CTA bilateral, no rhonchi, no rales , no accessory muscle use Abdominal: soft, nontender to palpation, no guarding Ext: no gross muscle atrophy, no contractures, Neuro: No gross focal neuro deficits noted Psych: Alert, oriented, appropriate affect Assessment: Marijuana abuse Depression with intentional overdose Imaging: EKG from the medicine admission was reviewed showing sinus rhythm at 80 bpm with T wave flattening in the inferior leads. Data Review: Laboratory evaluation was reviewed with WBC count 4.7, hemoglobin 13.7, platelet count 293, sodium 143, potassium 4.2, glucose 104, with urine toxicology positiv e for marijuana. Plan: Advised on the importance of cessation Defer management of depression and suicidal ideation to the primary psychiatry service Thank you for allowing us to participate in the care of this patient. We will follow peripherally. Do not hesitate to contact us with questions. Someone can be reached from the [facility] hospitalist group at all hours of the day at [phone]. Past Medical History Past Medical History: No Reported History History of Any Multi-Drug Resistant Organisms: None Reported Past Surgical History: Section, Cholecystectomy, Hysterectomy Past Anesthesia/Blood Transfusion Reactions: No Reported Reaction Past Psychological History: ADD/ADHD, Anxiety, Depression Smoking Status: Former smoker Past Alcohol Use History: Occasional Past Drug Use History: None Reported Medications and Allergies Allergies Allergy/AdvReac Type Severity Reaction Status Date / Time amoxicillin Allergy Unknown Verified 07/24/24 09:23 Physical Exam Vitals: Vital Signs Temp Pulse Resp BP Pulse Ox 07/26/24 06:55 98.6 F 69 16 111/57 99 Results CBC & Chem 7: 07/25/24 05:38 07/25/24 05:38 Labs: Abnormal Lab Results - Last 24 Hours (Table) 07/26/24 Range/Units 07:21 Cholesterol 208.00 H (0.00-200.00) mg/dL HDL Cholesterol 61.40 H (40.00-60.00) mg/dL
[2024-07-27] MEDS ORDERED: hydrOXYzine pamoate 25 MG CAP PO PRN (10:24)
--- NOTE | 2024-07-27 10:58 | P.PN ---
Progress Note - Text Progress Note Date: 07/27/24 Interval History: Patient was seen [wandering the hallways] and was directable and agreeable to speak with story writer in the office. She states that she is very frustrated today. She states that things did not go well in group, because she does not feel that she can express things clearly. She is worried about her pets and her house. He sister is trying to help her, while she is in here. She states she is very irritable. She claims to have slept well last night. She is tearful at times. She states her appetite is good. At this time patient denies any suicidal or homicidal ideations, intent or plan. Patient denies any auditory, visual hallucinations and denies any paranoia or delusions. Patient denies any side effects from the medications and has been compliant with meds. MENTAL STATUS EXAM: General Appearance: Patient appears to be somewhat sleepy, stated age Cooperative. Patient appears to have fair hygiene and grooming wearing hospital gown with adequate eye contact. Behavior: Patient is calmly seated without any agitated behavior. Tearful at times Speech: Patient's speech is fluent and nonpressured. Mood/Affect: Patient reports their mood is "depressed, frustrated ", affect is congruent and constricted Suicidality/Homicidality: Patient denies having any suicidal or homicidal ideation intent or plan. Perceptions: Patient denies any visual hallucinations and denies any auditory hallucinations Though content/process: There is no evidence of any delusional thought content and thought process is linear and goal-directed. Memory and concentration: AOX3, grossly intact for the purposes of this session. Judgment and insight: fair IMPRESSIONS: Suicide attempt by overdose on psychiatric medications Mood disorder unspecified, rule out bipolar disorder versus major depressive disorder Cannabis use disorder PLAN: -Patient is admitted under [voluntary] status to MHU for stabilization of psychiatric symptoms and safety. Patient has signed adult voluntary form and medication consent and is placed in patient's chart. -Medications : increase Zoloft 75mg daily for depression/anxiety, trazodone 25mg qhs prn for sleep, increase seroquel 50mg qhs for sleep/mood add visteral 25mg q6 prn for anxiety -Ativan [and Haldol] PRN for agitation/aggression -NRT - [nicotine patch] -SW on board for discharge planning. Encourage patient to participate in groups to work on coping skills. will have social work assist patient in calling [employer] [facility] [employer] Sessions
[2024-07-27] MEDS: hydrOXYzine pamoate 25 MG CAP PO ONE (11:20)
[2024-07-27] MEDS: IBUPROFEN 600 MG TAB PO PRN (14:28)
[2024-07-27] MEDS: QUEtiapine 50 MG TAB PO SCH (21:02)
[2024-07-28] MEDS: SERTRALINE 50 MG TAB PO SCH (08:28)
--- NOTE | 2024-07-28 11:25 | P.PN ---
Progress Note - Text Progress Note Date: 07/28/24 Interval History: Patient was seen [wandering the hallways] and was directable and agreeable to speak with automobile and property underwriter in the office. She states that she is feeling a bit better today, that she feels calm and relaxed. She claims to have slept well last night. She states her appetite is good. She has been in touch with her , and he brought her clothes, and he got the animals picked up by [employer]. She stated that her sister is going to help her out upon discharge. Patient is attending groups. At this time patient denies any suicidal or homicidal ideations, intent or plan. Patient denies any auditory, visual hallucinations and denies any paranoia or delusions. Patient denies any side effects from the medications and has been compliant with meds. MENTAL STATUS EXAM: General Appearance: Patient appears to be stated age Cooperative. Patient appears to have fair hygiene and grooming casually dressed, with adequate eye contact. Behavior: Patient is calmly seated without any agitated behavior. Speech: Patient's speech is fluent and nonpressured. Mood/Affect: Patient reports their mood is "improving ", affect is congruent and constricted Suicidality/Homicidality: Patient denies having any suicidal or homicidal ideation intent or plan. Perceptions: Patient denies any visual hallucinations and denies any auditory hallucinations Though content/process: There is no evidence of any delusional thought content and thought process is linear and goal-directed. Memory and concentration: AOX3, grossly intact for the purposes of this session. Judgment and insight: improving mildly IMPRESSIONS: Suicide attempt by overdose on psychiatric medications Mood disorder unspecified, rule out bipolar disorder versus major depressive disorder Cannabis use disorder PLAN: -Patient is admitted under [voluntary] status to [facility] for stabilization of psychiatric symptoms and safety. Patient has signed adult voluntary form and medication consent and is placed in patient's chart. -Medications : Zoloft 75 mg daily for depression/anxiety, trazodone 25mg qhs prn for sleep, seroquel 50mg qhs for sleep/mood, vistaril 25mg q6 prn for anxiety -Ativan [and Haldol] PRN for agitation/aggression -NRT - [nicotine patch] -SW on board for discharge planning. Encourage patient to participate in groups to work on coping skills. likely discharge thursday back home if patient is improving psychiatrically.
--- NOTE | 2024-07-29 12:35 | P.PN ---
Progress Note - Text Progress Note Date: 07/29/24 Interval History: Patient was seen in the [facility] and was directable and agreeable to speak with check writer salesperson in the office. She states that she is feeling much better today, just a little foggy when she wakes up, however, she stated that she slept well last night. She states her appetite is better than it has been in a while. She states that she has been talking with her sister, about discharge, and she thinks that her sister is going to be staying with her upon discharge to help her out. Patient is attending groups. Plater Supervisor spoke with patient about switching her Zoloft to night time, patient agreeable. At this time patient denies any suicidal or homicidal ideations, intent or plan. Patient denies any auditory, visual hallucinations and denies any paranoia or delusions. Patient denies any side effects from the medications and has been compliant with meds. MENTAL STATUS EXAM: General Appearance: Patient appears to be stated age Cooperative. Patient appears to have fair hygiene and grooming casually dressed, with adequate eye contact. Behavior: Patient is calmly seated without any agitated behavior. Speech: Patient's speech is fluent and nonpressured. Mood/Affect: Patient reports their mood is "improving ", affect is congruent and constricted, improving mildly Suicidality/Homicidality: Patient denies having any suicidal or homicidal ideation intent or plan. Perceptions: Patient denies any visual hallucinations and denies any auditory hallucinations Though content/process: There is no evidence of any delusional thought content and thought process is linear and goal-directed. Memory and concentration: AOX3, grossly intact for the purposes of this session. Judgment and insight: improving mildly IMPRESSIONS: Suicide attempt by overdose on psychiatric medications Mood disorder unspecified, rule out bipolar disorder versus major depressive disorder Cannabis use disorder PLAN: -Patient is admitted under [voluntary] status to [facility]HU for stabilization of psychiatric symptoms and safety. Patient has signed adult voluntary form and medication consent and is placed in patient's chart. -Medications : increase and change Zoloft 100 mg qhs for depression/anxiety starting tomorrow night, trazodone 25mg qhs prn for sleep, seroquel 50mg qhs for sleep/mood, vistaril 25mg q6 prn for anxiety -Ativan [and Haldol] PRN for agitation/aggression -NRT - [nicotine patch] -SW on board for discharge planning. Encourage patient to participate in groups to work on coping skills. If patient is doing well over the weekend, will discharge Thursday, back home.
[2024-07-29] MEDS ORDERED: SERTRALINE 100 MG TAB PO SCH (21:00)
[2024-07-30 06:15] VITALS: RESP 17; TEMP 97.7
--- NOTE | 2024-07-30 13:25 | P.PN ---
Subjective Progress Note Date: 07/30/24 Principal diagnosis: IMPRESSIONS: . Suicide attempt by overdose on psychiatric medications Mood disorder unspecified, rule out bipolar disorder versus major depressive disorder Cannabis use disorder the patient came up to me in the [facility] and said "yeah and see me yet maybe we talk" she seemed quite eagerto talk. She says that she has a lifelong pattern of laying things down of forgetting where they are failure to hand in homework staring out the window in class having to reread pages because her mind gets distracted and more recently becoming totally agitated when she has another reminder of her poor memory he pulls all the pain and struggle of the past into that moment and she overreacts. She has troubled relationships because of the overreaction and because of the being angry at her for her forgetfulness. Her job function is impaired as a result. All this is caused some burnout so on top of her severe ADHD she also has dysthymic disorder and depression.she said that when she was on Adderall she did much better she was on Adderall the morningand Celexa at night, and someone didn't think that was a good combination so they stopped the Adderall. MENTAL STATUS EXAM: she became tearful when I reviewed with her the effects of adult ADHD and based good knowledge that they all give her much trouble. General Appearance: Patient appears to be stated age Cooperative. Patient appears to have fair hygiene and grooming casually dressed, with adequate eye contact. Behavior: Patient is calmly seated without any agitated behavior. Speech: Patient's speech is fluent and nonpressured. Mood/Affect: Patient reports their mood is "improving ", affect is congruent and constricted, improving mildly Suicidality/Homicidality: Patient denies having any suicidal or homicidal ideation intent or plan. Perceptions: Patient denies any visual hallucinations and denies any auditory hallucinations Though content/process: There is no evidence of any delusional thought content and thought process is linear and goal-directed. Memory and concentration: AOX3, grossly intact for the purposes of this session. Judgment and insight: improving mildly PLAN: she seems to be doing well and I do think that discharge Thursday as fine she is going to work with her outpatient doctor in regards to possible treatment for the ADHD the Zoloft already seems to be helping her with the burn out. -Patient is admitted under [voluntary] status to [facility] for stabilization of psychiatric symptoms and safety. Patient has signed adult voluntary form and medication consent and is placed in patient's chart. -Medications : increase and change Zoloft 100 mg qhs for depression/anxiety st arting tomorrow night, trazodone 25mg qhs prn for sleep, seroquel 50mg qhs for sleep/mood, vistaril 25mg q6 prn for anxiety -Ativan [and Haldol] PRN for agitation/aggression -NRT - [nicotine patch] -SW on board for discharge planning. Encourage patient to participate in groups to work on coping skills. If patient is doing well over the weekend, will discharge Thursday, back home Objective - Vital Signs Vital signs: Vital Signs Temp 97.7 F 07/30/24 06:00 Pulse 70 07/30/24 06:00 Resp 17 07/30/24 06:00 BP 120/73 07/30/24 06:00 Pulse Ox 97 07/30/24 06:00 FiO2 - Labs CBC & Chem 7: 07/25/24 05:38 07/25/24 05:38
[2024-07-30] MEDS: SERTRALINE 100 MG TAB PO SCH (20:53)
--- NOTE | 2024-07-31 10:17 | P.PN ---
Subjective Progress Note Date: 07/31/24 Principal diagnosis: IMPRESSIONS: . Suicide attempt by overdose on psychiatric medications Mood disorder unspecified, rule out bipolar disorder versus major depressive disorder Cannabis use disorder the patient came readily to talk to me. She was in her room lying down at about 10:00 said she felt kind of tired after practice. We reviewed the elements of ADHD and how to work with the system and her doctor to get a treatment. MENTAL STATUS EXAM:she is serious but pleasant and cooperative good eye contact gains patient and her normal General Appearance: Patient appears to be stated age Cooperative. Patient appears to have fair hygiene and grooming casually dressed, with adequate eye contact. Behavior: Patient is calmly seated without any agitated behavior. Speech: Patient's speech is fluent and nonpressured. Mood/Affect: Patient reports their mood is "improving ", affect is congruent and constricted, improving mildly Suicidality/Homicidality: Patient denies having any suicidal or homicidal ideation intent or plan. Perceptions: Patient denies any visual hallucinations and denies any auditory hallucinations Though content/process: There is no evidence of any delusional thought content and thought process is linear and goal-directed. Memory and concentration: AOX3, grossly intact for the purposes of this session. Judgment and insight: improving mildly PLAN: she seems to be doing well and I do think that discharge Thursday as fine she is going to work with her outpatient doctor in regards to possible treatment for the ADHD the Zoloft already seems to be helping her with the burn out. -Patient is admitted under [voluntary] status to [facility] for stabilization of psychiatric symptoms and safety. Patient has signed adult voluntary form and medication consent and is placed in patient's chart. -Medications : increase and change Zoloft 100 mg qhs for depression/anxiety starting tomorrow night, trazodone 25mg qhs prn for sleep, seroquel 50mg qhs for sleep/mood, vistaril 25mg q6 prn for anxiety -Ativan [and Haldol] PRN for agitation/aggression -NRT - [nicotine patch] -SW on board for discharge planning. Encourage patient to participate in groups to work on coping skills. If patient is doing well over the weekend, will discharge Thursday, back home Objective - Vital Signs Vital signs: Vital Signs Temp 97.7 F 07/30/24 06:00 Pulse 70 07/30/24 06:00 Resp 17 07/30/24 06:00 BP 120/73 07/30/24 06:00 Pulse Ox 97 07/30/24 06:00 FiO2 - Labs CBC & Chem 7: 07/25/24 05:38 07/25/24 05:38
[2024-08-01 06:41] VITALS: BP 94/55; PULSE 54
--- NOTE | 2024-08-01 19:05 | P.DS ---
Providers Date of admission: 07/25/24 20:02 Expected date of discharge: 08/01/24 Attending physician: Maximilian Trujillo MD Consults: 07/24/24 00:57 Consult Physician Urgent Consulting Provider: Maximilian Trujillo Consult Reason/Comments: suicide attempt Do you want consulting provider notified?: Yes 07/25/24 20:11 Consult Physician Routine Consulting Provider: [facility] Consult Reason/Comments: History and Physical Do you want consulting provider notified?: Yes Primary care physician: Stated None Hospital Course: Admission HPI: Admission note was completed by Dr. Trujillo: "IDENTIFYING DATA: Patient is a This patient is a 54-year-old female, currently lives with her in a house, they also live with one of her kids. She claims that she has a total of 4 kids. 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 HPI: The patient presented to the hospital initially on 07/24 with intentional overdose on Wellbutrin. Psychology was consulted, as per consult note, "According to ER report patient apparently texted her sister after the overdose and claimed that it was a suicide attempt. EMS was immediately called and brought her into the hospital. Patient did not describe the quantity of Wellbutrin that she took. Urine drug send is positive for THC. Patient was seen laying in bed today agreeable to speak to remote mortgage underwriter. She was fairly vague guarded, claims that she did try to commit suicide. States that she has been diagnosed with several different mental health diagnoses in the past and does not know which one she has. Claims that she has been given way too many pills in the past. States that she is upset at her and claims that a "girl was sending me pictures" of herself and her , she suspects that maybe her is cheating on her. Claims that she never got to confront her about it. States that she has been feeling overwhelmed, depressed. Also endorsing anxiety. States that the girl has been harassing her putting different pictures on her over the Internet and Facebook. Claims that after the overdose she tried to just go to sleep. At this time patient denies any homical ideations, intent or plan. Patient denies any auditory, visual hallucinations and denies any paranoia or delusions. She is currently endorsing suicidal thoughts, no intent or plan. Patients admits to using marijuana daily heavily. Denies any other recreational drug use". Upon today's assessment, patient was seen resting in her room, and agreeable to speak to the remote mortgage underwriter in the office. She states that what caused this incident is that someone who is infatuated with her was harassing her online and through text. She tried talking to her , and that wasn't going well, so she took all her medicine. She called her sister and told her good bye. Then she woke up in the hospital. She took wellbutrin and benedryl. She states it was an attempt at suicide. She thought the pills would stop her heart. She is frustrated and depressed, and don't want to feel like this anymore. She endorses anxiety. She states her appetite is not that great, and has not been for good for a year. She states she wants to feel better, and is agreeable to treatment. PAST PSYCHIATRIC HISTORY: Patient has a a history of unknown psychiatric illness. Patient is currently on Wellbutrin, unknown dose. States that she was last psychiatrically admitted to the mental health unit in [facility] 31 years ago. Patient denies any psychiatric outpatient follow-up. States that she overdosed on pills 31 years ago. PMH:As per ER note ALLERGIES: as per EMR CHEMICAL DEPENDENCY HISTORY: as per HPI FAMILY PSYCHIATRIC/SUBSTANCE USE HISTORY: That her brother and also mother has some form of mental illness SOCIAL HISTORY: Patient was born and raised in [facility]. She states that she completed high school and did some college, claims that she did go to [facility] in the past for unpaid tickets. States that she has 4 kids, currently is with her and 1 child. She currently works at a hotel at the frontload driver. MENTAL STATUS EXAM: General Appearance: Patient appears to be somewhat sleepy, stated age Cooperative. Patient appears to have fair hygiene and grooming wearing hospital gown with adequate eye contact. Behavior: Patient is calmly seated without any agitated behavior. Speech: Patient's speech is fluent and nonpressured. Mood/Affect: Patient reports their mood is "depressed, anxious", affect is congruent and constricted Suicidality/Homicidality: Patient denies having any suicidal or homicidal ideation intent or plan. Perceptions: Patient denies any visual hallucinations and denies any auditory hallucinations Though content/process: There is no evidence of any delusional thought content and thought process is linear and goal-directed. Memory and concentration: AOX3, grossly intact for the purposes of this session. Can spell "WORLD" backwards Judgment and insight: fair STRENGTHS/WEAKNESSES: strength is that patient is [resilient]. Weakness is that patient [has poor judgment and is impulsive] INTELLECT: Average IMPRESSIONS: Suicide attempt by overdose on psychiatric medications Mood disorder unspecified, rule out bipolar disorder versus major depressive disorder Cannabis use disorder PLAN: -Patient is admitted under [voluntary] status to MHU for stabilization of psychiatric symptoms and safety. Patient has signed adult voluntary form and medication consent and is placed in patient's chart. -Medications : Will start patient on Zoloft 50mg daily for depression/anxiety, trazodone 25mg qhs prn for sleep, seroquel 25mg qhs for sleep/mood -Ativan [and Haldol] PRN for agitation/aggression [-Patient was counselled on substance abuse and desired to cut back on use] -Patient was informed of the risks, benefits and side effects of the medication [and patient verbally consented to taking the medications. -Internal Medicine consult to perform medical evaluation and physical. -NRT - [nicotine patch] -SW on board for discharge planning. Encourage patient to participate in groups to work on coping skills. " Hospital course: Upon admission to the unit patient was directable and agreeable to commence treatment and signed adult voluntary formPatient got along well with other patients on the unit and followed unit protocol. Patient was compliant with the medications and denied any side effects throughout hospital course. Patient was started on Zoloft, Trazodone and Seroquel and titrated to effective doses listed below. Patient spoke of her stressors and engaged in therapy both group and individual. Patient was also seen by medical team for history and physical exam. Throughout the course of the hospitalization patient gradually improved with regards to mood, anxiety, sleep and returned back to their baseline level of functioning. On the day of discharge patient denied any suicidal or homicidal ideations intent or plan denied any auditory or visual hallucinations. Patient endorsed wanting to live for her health and family. The patient denied any access to guns or weapons. Patient denied any paranoia and did not endorse any delusions. Patient does have a significant history of substance abuse and was counseled on abstaining from all substances including alcohol and marijuana. Patient elected to do outpatient substance use treatment program through [facility]. Patient was also counseled on the medications and need for regular compliance and was encouraged to follow-up with their outpatient appointment for mental health and also for primary care. Prior to discharge a meeting with [facility] was held for discharge planning. Mental status exam: General Appearance: Patient appears to be stated age is alert, pleasant, and cooperative. Patient is in no acute distress and has improved hygiene and grooming Behavior: Patient is calmly seated without any agitated behavior. Speech: Patient's speech is fluent and non-pressured. Mood/Affect: Patient reports their mood is "[better]", affect is congruent and euthymic. Suicidality/Homicidality: Patient denies having any suicidal or homicidal ideation intent or plan. Perceptions: Patient denies any auditory or visual hallucinations. Though content/process: There is no evidence of any delusional thought content and thought process is linear and goal-directed, more future oriented Memory and concentration: AOX3, grossly intact for the purposes of this session. Can spell "WORLD" backwards correctly. Judgment and insight: improved with guarded prognosis Impression: Suicide attempt by overdose on psychiatric medications Mood disorder unspecified, rule out bipolar disorder versus major depressive disorder Cannabis use disorder Plan: -Continue with discharge today as patient has improved and stabilized psychiatrically and is not currently an imminent threat to [himself] and/or others. [Patient will remain at chronically elevated risk for harm to self and/or others due to his impulsivity and polysubstance abuse.] -Continue medications: Zoloft 100 mg QHS for depression Seroquel 50 mg QHS for mood/sleep -Patient was counseled on the need for medication compliance and appropriate follow-up at mental health and also primary care for medical issues. Patient verbalized understanding and agreed. -Social work also to arrange for patients follow up appointments with [facility] for psychiatric care along with follow up with primary care provider. -Patient counseled on abstaining from recreational drugs and marijuana and alcohol. Was informed/educated on the adverse effects on their physical and mental health. -Patient was instructed to return to the hospital or seek immediate medical care if their psychiatric or medical symptoms do worsen or reoccur. Vital Signs (72 hours) 07/30/24 07/31/24 08/01/24 06:00 16:11 06:41 Temperature 97.7 F Pulse Rate [ 70 94 54 L Left] Respiratory 17 Rate Blood Pressure 120/73 96/63 94/55 [Right Arm] O2 Sat by Pulse 97 Oximetry Laboratory Results WBC 4.73 X 10*3/uL (4.50-10.00) 07/25/24 05:38 RBC 4.58 X 10*6/uL (4.10-5.20) 07/25/24 05:38 Hgb 13.7 g/dL (12.0-15.0) 07/25/24 05:38 Hct 42.7 % (37.2-46.3) 07/25/24 05:38 MCV 93.2 FL (80.0-97.0) 07/25/24 05:38 MCH 29.9 pg (27.0-32.0) 07/25/24 05:38 MCHC 32.1 g/dL (32.0-37.0) 07/25/24 05:38 RDW 12.3 % (11.5-14.5) 07/25/24 05:38 Plt Count 293 X 10*3/uL (140-440) 07/25/24 05:38 MPV 10.0 FL (9.5-12.2) 07/25/24 05:38 Immature Gran % (Auto) 0.20 % 07/25/24 05:38 Absolute Nucleated RBC 0 % 07/25/24 05:38 Neutrophils % 57.0 % 07/25/24 05:38 Lymphocytes % 28.1 % 07/25/24 05:38 Monocytes % 8.9 % 07/25/24 05:38 Eosinophils % 4.7 % 07/25/24 05:38 Basophils % 1.1 % 07/25/24 05:38 Immature Gran # 0.01 X 10*3/uL (0.00-0.04) 07/25/24 05:38 Neutrophils # 2.70 X 10*3/uL (1.80-7.70) 07/25/24 05:38 Lymphocytes # 1.33 X 10*3/uL (0.90-5.00) 07/25/24 05:38 Monocytes # 0.42 X 10*3/uL (0.20-1.00) 07/25/24 05:38 Eosinophils # 0.22 X 10*3/uL (0.04-0.35) 07/25/24 05:38 Basophils # 0.05 X 10*3/uL (0.00-0.10) 07/25/24 05:38 NRBC/100 WBC Diff 0 X 10*3/uL (0.00-0.01) 07/25/24 05:38 Sodium 143 mmol/L (135-145) 07/25/24 05:38 Potassium 4.2 mmol/L (3.5-5.5) 07/25/24 05:38 Chloride 107 mmol/L (96-109) 07/25/24 05:38 Carbon Dioxide 26.6 mmol/L (21.6-31.8) 07/25/24 05:38 Anion Gap 9.40 mmol/L (4.00-12.00) 07/25/24 05:38 BUN 4.2 mg/dL (9.0-27.0) L 07/25/24 05:38 Creatinine 0.7 mg/dL (0.6-1.5) 07/25/24 05:38 Est GFR (CKD-EPI) 104 (>=60) 07/25/24 05:38 Est GFR (CKD-EPI)AfAm >90 (>60 ml/min/1.73 sqM) 07/23/24 22:43 Est GFR (CKD-EPI)NonAf >90 (>60 ml/min/1.73 sqM) 07/23/24 22:43 BUN/Creatinine Ratio 6.00 Ratio (12.00-20.00) L 07/25/24 05:38 Glucose 84 mg/dL (70-110) 07/25/24 05:38 POC Glucose (mg/dL) 101 mg/dL (70-110) 07/23/24 22:36 POC Glu Coremaker Helper ID Brian Mccormick 07/23/24 22:[address] Glu mg/dL 114 mg/dL 07/26/24 07:21 Hemoglobin A1c 5.6 % (<=6.0) 07/26/24 07:21 Plasma Lactic Acid Robbie 1.0 mmol/L (0.7-2.0) 07/23/24 22:43 Calcium 9.0 mg/dL (8.7-10.3) 07/25/24 05:38 Magnesium 1.7 mg/dL (1.6-2.3) 07/23/24 22:57 Total Bilirubin 1.0 mg/dL (0.2-1.3) 07/26/24 07:21 Conjugated Bilirubin 0.0 mg/dL (0.0-0.3) 07/26/24 07:21 Unconjugated Bilirubin 0.8 mg/dL (0.0-1.1) 07/26/24 07:21 Delta Bilirubin 0.2 mg/dL (0.0-0.2) 07/26/24 07:21 AST 24 U/L (14-36) 07/26/24 07:21 ALT 15 U/L (4-34) 07/26/24 07:21 Alkaline Phosphatase 63 U/L (38-126) 07/26/24 07:21 Total Protein 6.6 g/dL (6.3-8.2) 07/26/24 07:21 Albumin 4.1 g/dL (3.5-5.0) 07/26/24 07:21 Triglycerides 79.20 mg/dL (0.00-149.00) 07/26/24 07:21 Cholesterol 208.00 mg/dL (0.00-200.00) H 07/26/24 07:21 LDL Cholesterol, Calc 130.8 mg/dL (0.0-131.0) 07/26/24 07:21 VLDL Cholesterol, Calc 15.84 mg/dL (5.00-40.00) 07/26/24 07:21 HDL Cholesterol 61.40 mg/dL (40.00-60.00) H 07/26/24 07:21 Cholesterol/HDL Ratio 3.39 Ratio 07/26/24 07:21 TSH 1.380 mIU/L (0.465-4.680) 07/26/24 07:21 Urine HCG, Qual Not Detected (Not Detectd) 07/23/24 22:57 Salicylates <1.0 mg/dL 07/23/24 22:43 Urine Opiates Screen Not Detected (NotDetected) 07/23/24 22:57 Ur Oxycodone Screen Not Detected (NotDetected) 07/23/24 22:57 Urine Methadone Screen Not Detected (NotDetected) 07/23/24 22:57 Acetaminophen <10.0 ug/mL 07/23/24 22:43 Ur Barbiturates Screen Not Detected (NotDetected) 07/23/24 22:57 U Tricyclic Antidepress Not Detected (NotDetected) 07/23/24 22:57 Ur Phencyclidine Scrn Not Detected (NotDetected) 07/23/24 22:57 Ur Amphetamines Screen Not Detected (NotDetected) 07/23/24 22:57 U Methamphetamines Scrn Not Detected (NotDetected) 07/23/24 22:57 U Benzodiazepines Scrn Not Detected (NotDetected) 07/23/24 22:57 Urine Cocaine Screen Not Detected (NotDetected) 07/23/24 22:57 U Marijuana (THC) Screen Detected (NotDetected) H 07/23/24 22:57 Serum Alcohol <10 mg/dL 07/23/24 22:43 SARS-CoV-2 (PCR) Not Detected (Not Detectd) 07/25/24 17:13 Patient Condition at Discharge: Stable Plan - Discharge Summary Discharge Rx Participant: No New Discharge Prescriptions: New QUEtiapine [SEROquel] 50 mg PO HS 30 Days #30 tab Sertraline [Zoloft] 100 mg PO HS 30 Days #30 tab Discontinued buPROPion XL [Wellbutrin XL] 300 mg PO DAILY Discharge Medication List QUEtiapine [SEROquel] 50 mg PO HS 30 Days #30 tab 08/01/24 [Rx] Sertraline [Zoloft] 100 mg PO HS 30 Days #30 tab 08/01/24 [Rx] Follow up Appointment(s)/Referral(s): [facility] [place] [Outside] - 08/04/24 1:00 pm (Roxann Hinton 08/04 @ 13:00 [place] 08/04 @ 14:00) [facility] [NON-STAFF] - 1 Week Patient Instructions/Handouts: Mood Disorders (DC) Activity/Diet/Wound Care/Special Instructions: Avoid the use of street drugs and alcohol. Take all medications as prescribed. When you are in need of refills on your medications, please contact your medical provider and/or outpatient psychiatrist/provider to have this done. Please go to your scheduled outpatient appointment for aftercare treatment. If symptoms return or become worse, call the crisis line at and/or go to the nearest emergency room for evaluation. National Suicide Hotline 988 Discharge/Stand Alone Forms: Area PCPs Discharge Disposition: HOME SELF-CARE
== END 2024-08-01 14:35 | disposition home or self-care (01) | DRG 881 ==
LOC: EC 22:32 → 6NMEDSUR 07-24 00:57 → UNDOADMOB 07-24 00:57 → 6NMEDSUR 07-24 21:18 → 3MHU 07-25 20:02
PROVIDERS: ADMIT Psychiatry & Neurology Psychiatry; ATTEND Psychiatry & Neurology Psychiatry
DX: F32.9 Major depressive disorder, single episode, unspecified (principal); T74.91XA Unspecified adult maltreatment, confirmed, initial encounter; F90.9 Attention-deficit hyperactivity disorder, unspecified type; F41.9 Anxiety disorder, unspecified; F34.1 Dysthymic disorder; G89.29 Other chronic pain; M54.50 Low back pain, unspecified; T43.292A Poisoning by other antidepressants, intentional self-harm, initial encounter; F12.10 Cannabis abuse, uncomplicated; Y07.010 Husband, current, perpetrator of maltreatment and neglect; Z87.891 Personal history of nicotine dependence; Z91.51 Personal history of suicidal behavior; Z11.52 Encounter for screening for COVID-19; Z88.0 Allergy status to penicillin; Z65.3 Problems related to other legal circumstances; Z71.89 Other specified counseling
CPT/HCPCS: 36415; 51701; 80048; 80053; 80061; 80076; 80143; 80179; 80306; 80320; 81025; 83036; 83605; 83735; 84443; 85025; 87635; 93005; 96360; 96361; 99285

== ENCOUNTER 2024-12-14 06:43 | Inpatient (IN) | payer OTHER ==
--- NOTE | 2024-12-14 07:00 | ED ---
Abdominal Pain HPI - General Chief Complaint: Abdominal Pain Stated Complaint: abd pain Time Seen by Provider: 12/14/24 06:50 Source: patient, EMS, RN notes reviewed Mode of arrival: EMS Limitations: no limitations - History of Present Illness Initial Comments: 54-year-old female presents emergency department chief complaint of epigastric abdominal pain. Patient states started 4 to 5 hours ago she has been having diffuse abdominal pain, nausea vomiting. She states it woke up out of sleep it is nonradiating type pain. She denies any chest pain shortness of breath she had no change in bowel habits no dysuria no hematuria. Patient states she had a prior cholecystectomy no other abdominal surgeries. Denies any history of GERD or peptic ulcer disease. - Related Data Home Medications Medication Instructions Recorded Confirmed Citalopram Hydrobromide [CeleXA] 30 mg PO HS 12/14/24 12/14/24 buPROPion SR [Wellbutrin SR] 100 mg PO DAILY 12/14/24 12/14/24 Allergies Allergy/AdvReac Type Severity Reaction Status Date / Time amoxicillin Allergy Unknown Verified 12/14/24 09:34 Review of Systems ROS Statement: Those systems with pertinent positive or pertinent negative responses have been documented in the HPI. ROS Other: All systems not noted in ROS Statement are negative. Past Medical History Past Medical History: No Reported History History of Any Multi-Drug Resistant Organisms: None Reported Past Surgical History: Section, Cholecystectomy, Hysterectomy Past Anesthesia/Blood Transfusion Reactions: No Reported Reaction Past Psychological History: ADD/ADHD, Anxiety, Depression Past Alcohol Use History: Occasional Past Drug Use History: None Reported General Exam Limitations: no limitations General appearance: alert, in no apparent distress Head exam: Present: atraumatic, normocephalic, normal inspection Eye exam: Present: normal appearance, PERRL, EOMI. Absent: scleral icterus, conjunctival injection, periorbital swelling Respiratory exam: Present: normal lung sounds bilaterally. Absent: respiratory distress, wheezes, rales, rhonchi, stridor Cardiovascular Exam: Present: normal rhythm, bradycardia, normal heart sounds. Absent: systolic murmur, diastolic murmur, rubs, gallop, clicks GI/Abdominal exam: Present: soft, tenderness, guarding, normal bowel sounds. Absent: distended, rebound, rigid Back exam: Absent: CVA tenderness (R), CVA tenderness (L) Neurological exam: Present: alert Skin exam: Present: warm, dry, intact, normal color. Absent: rash Course Vital Signs 12/14/24 12/14/24 12/14/24 06:46 09:38 10:47 Temperature 97.5 F L 97.5 F L Pulse Rate 41 L 56 L 54 L Respiratory 17 18 18 Rate Blood Pressure 155/89 175/83 152/70 O2 Sat by Pulse 100 100 99 Oximetry Medical Decision Making - Medical Decision Making Was pt. sent in by a medical professional or institution (, PA, CERTIFIED EXECUTIVE CHEF, urgent care, hospital, or penitentiary...) When possible be specific @ -No Did you speak to anyone other than the patient for history (EMS, parent, family, police, friend...)? What history was obtained from this source @ -No Did you review nursing and triage notes (agree or disagree)? Why? @ -I reviewed and agree with nursing and triage notes Were old charts reviewed (outside hosp., previous admission, EMS record, old EKG, old radiological studies, urgent care reports/EKG's, penitentiary records)? Report findings @ -No old charts were reviewed Differential Diagnosis (chest pain, altered mental status, abdominal pain women, abdominal pain men, vaginal bleeding, weakness, fever, dyspnea, syncope, headache, dizziness, GI bleed, back pain, seizure, CVA, palpatations, mental health, musculoskeletal)? @ -Differential Abdominal Pain Women: Appendicitis, Cholecystitis, diverticulosis, ischemic bowel, pancreatitis, hepatitis, UTI, gastroenteritis, AAA, incarcerated hernia, bowel obstruction, constipation, inflammatory bowel, hepatitis, peptic ulcer disease, splenic infarction, perforated viscus, vulvitis, ovarian torsion, PID, kidney stone, placenta abruption, this is not meant to be an all-inclusive list EKG interpreted by me (3pts min.). @ -As above X-rays interpreted by me (1pt min.). @ -Chest questions possible infiltrate CT interpreted by me (1pt min.). @ -CT abdomen pelvis showing colitis, no other acute intra-abdominal process U/S interpreted by me (1pt. min.). @ -Ultrasound venous Doppler bilateral lower extremity negative for acute DVT What testing was considered but not performed or refused? (CT, X-rays, U/S, labs)? Why? @ -[Consider CT PE study though patient had recent CT of her abdomen will have VQ scan What meds were considered but not given or refused? Why? @ -None Did you discuss the management of the patient with other professionals (professionals i.e. , PA, CERTIFIED EXECUTIVE CHEF, lab, RT, psych nurse, social work supervisor, industrial renderer, teacher, control officer manager, supervisor case loading)? Give summary @ -[Discussed the case with admitting physician Sheet regarding patient's colitis, NSTEMI, bradycardia with prolonged QT, notified cardiology and discussed case regarding NSTEMI and bradycardia with prolonged QT patient will be evaluated the emergency department. Was smoking cessation discussed for >3mins.? @ -No Was critical care preformed (if so, how long)? @ -35 minutes Were there social determinants of health that impacted care today? How? (Homelessness, low income, unemployed, alcoholism, drug addiction, transportation, low edu. Level, literacy, decrease access to med. care, custodial, rehab)? @ -No Was there de-escalation of care discussed even if they declined (Discuss DNR or withdrawal of care, Hospice)? DNR status @ -No What co-morbidities impacted this encounter? (DM, HTN, Smoking, COPD, CAD, Cancer, CVA, ARF, Chemo, Hep., AIDS, mental health diagnosis, sleep apnea, morb id obesity)? @ -Depression Was patient admitted / discharged? Hospital course, mention meds given and route, prescriptions, significant lab abnormalities, going to OR and other pertinent info. @ -Admitted patient presented for abdominal pain, nausea vomiting diarrhea. Patient does have symptoms consistent with colitis as seen on CT. Patient's found to have elevated troponin consistent with NSTEMI. She does not have any current complaints of chest pain or shortness of breath. Patient was started on heparin given NSTEMI and elevated D-dimer patient will have VQ scan and bilateral lower extremity venous Dopplers as she had recent intravenous dye and cannot receive have CT of the chest. Patient case discussed with admitting physician, cardiology. Patient had repeat EKG, stat repeat troponin, cardiology evaluation in the emergency department Undiagnosed new problem with uncertain prognosis? @ -No Drug Therapy requiring intensive monitoring for toxicity (Heparin, Nitro, Insulin, Cardizem)? @ -Heparin Were any procedures done? @ -No Diagnosis/symptom? @ -NSTEMI, colitis, bradycardia, prolonged QT Acute, or Chronic, or Acute on Chronic? @ -Acute Uncomplicated (without systemic symptoms) or Complicated (systemic symptoms)? @ -Complicated Side effects of treatment? @ -No Exacerbation, Progression, or Severe Exacerbation? @ -No Poses a threat to life or bodily function? How? (Chest pain, [place], [place], pneumonia, PE, COPD, DKA, ARF, appy, cholecystitis, CVA, Diverticulitis, Homicidal, S uicidal, threat to staff... and all critical care pts) @ -Yes ACS, NSTEMI risk to cardiac function - Lab Data Result diagrams: 12/14/24 06:58 12/14/24 06:58 Lab Results 12/14/24 12/14/24 12/14/24 Range/Units 06:58 06:58 06:58 WBC 16.3 H (3.8-10.6) k/uL RBC 5.03 (3.80-5.40) m/uL Hgb 14.6 (11.4-16.0) gm/dL Hct 46.3 H (34.0-46.0) % MCV 92.1 (80.0-100.0) fL MCH 29.0 (25.0-35.0) pg MCHC 31.5 (31.0-37.0) g/dL RDW 12.4 (11.5-15.5) % Plt Count 341 (150-450) k/uL MPV 7.9 Neutrophils % 86 % Lymphocytes % 9 % Monocytes % 4 % Eosinophils % 1 % Basophils % 0 % Neutrophils # 14.0 H (1.3-7.7) k/uL Lymphocytes # 1.5 (1.0-4.8) k/uL Monocytes # 0.6 (0-1.0) k/uL Eosinophils # 0.1 (0-0.7) k/uL Basophils # 0.0 (0-0.2) k/uL PT 10.4 (10.0-12.5) sec INR 0.9 (<1.2) APTT 21.2 L (22.0-30.0) sec D-Dimer (<0.60) mg/L FEU Sodium 138 (137-145) mmol/L Potassium 3.7 (3.5-5.1) mmol/L Chloride 101 (98-107) mmol/L Carbon Dioxide 27 (22-30) mmol/L Anion Gap 10 mmol/L BUN 19 H (7-17) mg/dL Creatinine 0.74 (0.52-1.04) mg/dL Est GFR (CKD-EPI)AfAm >90 (>60 ml/min/1.73 sqM) Est GFR (CKD-EPI)NonAf >90 (>60 ml/min/1.73 sqM) Glucose 208 H (74-99) mg/dL Lactic Ac Sepsis Rflx Plasma Lactic Acid Robbie (0.7-2.0) mmol/L Calcium 9.3 (8.4-10.2) mg/dL Phosphorus (2.5-4.5) mg/dL Magnesium (1.6-2.3) mg/dL Total Bilirubin 0.7 (0.2-1.3) mg/dL AST 106 H (14-36) U/L ALT 49 H (4-34) U/L Alkaline Phosphatase 87 (38-126) U/L Creatine Kinase (30-135) U/L Troponin I (0.000-0.034) ng/mL NT-Pro-B Natriuret Pep pg/mL Total Protein 6.3 (6.3-8.2) g/dL Albumin 4.0 (3.5-5.0) g/dL Lipase 70 (23-300) U/L Urine Color Urine Appearance (Clear) Urine pH (5.0-8.0) Ur Specific [place] (1.001-1.035) Urine Protein (Negative) Urine Glucose (UA) (Negative) Urine Ketones (Negative) Urine Blood (Negative) Urine Nitrite (Negative) Urine Bilirubin (Negative) Urine Urobilinogen (<2.0) mg/dL Ur Leukocyte Esterase (Negative) Urine RBC (0-5) /hpf Urine WBC (0-5) /hpf Ur Squamous Epith Cells (0-4) /hpf Amorphous Sediment (None) /hpf Urine Bacteria (None) /hpf Urine Mucus (None) /hpf 12/14/24 12/14/24 12/14/24 Range/Units 06:58 06:58 06:58 WBC (3.8-10.6) k/uL RBC (3.80-5.40) m/uL Hgb (11.4-16.0) gm/dL Hct (34.0-46.0) % MCV (80.0-100.0) fL MCH (25.0-35.0) pg MCHC (31.0-37.0) g/dL RDW (11.5-15.5) % Plt Count (150-450) k/uL MPV Neutrophils % % Lymphocytes % % Monocytes % % Eosinophils % % Basophils % % Neutrophils # (1.3-7.7) k/uL Lymphocytes # (1.0-4.8) k/uL Monocytes # (0-1.0) k/uL Eosinophils # (0-0.7) k/uL Basophils # (0-0.2) k/uL PT (10.0-12.5) sec INR (<1.2) APTT (22.0-30.0) sec D-Dimer (<0.60) mg/L FEU Sodium (137-145) mmol/L Potassium (3.5-5.1) mmol/L Chloride (98-107) mmol/L Carbon Dioxide (22-30) mmol/L Anion Gap mmol/L BUN (7-17) mg/dL Creatinine (0.52-1.04) mg/dL Est GFR (CKD-EPI)AfAm (>60 ml/min/1.73 sqM) Est GFR (CKD-EPI)NonAf (>60 ml/min/1.73 sqM) Glucose (74-99) mg/dL Lactic Ac Sepsis Rflx Plasma Lactic Acid Robbie 2.5 H* (0.7-2.0) mmol/L Calcium (8.4-10.2) mg/dL Phosphorus 2.7 (2.5-4.5) mg/dL Magnesium 1.7 (1.6-2.3) mg/dL Total Bilirubin (0.2-1.3) mg/dL AST (14-36) U/L ALT (4-34) U/L Alkaline Phosphatase (38-126) U/L Creatine Kinase 104 (30-135) U/L Troponin I 0.148 H* (0.000-0.034) ng/mL NT-Pro-B Natriuret Pep 137 pg/mL Total Protein (6.3-8.2) g/dL Albumin (3.5-5.0) g/dL Lipase (23-300) U/L Urine Color Urine Appearance (Clear) Urine pH (5.0-8.0) Ur Specific [place] (1.001-1.035) Urine Protein (Negative) Urine Glucose (UA) (Negative) Urine Ketones (Negative) Urine Blood (Negative) Urine Nitrite (Negative) Urine Bilirubin (Negative) Urine Urobilinogen (<2.0) mg/dL Ur Leukocyte Esterase (Negative) Urine RBC (0-5) /hpf Urine WBC (0-5) /hpf Ur Squamous Epith Cells (0-4) /hpf Amorphous Sediment (None) /hpf Urine Bacteria (None) /hpf Urine Mucus (None) /hpf 12/14/24 12/14/24 12/14/24 Range/Units 06:58 07:51 08:30 WBC (3.8-10.6) k/uL RBC (3.80-5.40) m/uL Hgb (11.4-16.0) gm/dL Hct (34.0-46.0) % MCV (80.0-100.0) fL MCH (25.0-35.0) pg MCHC (31.0-37.0) g/dL RDW (11.5-15.5) % Plt Count (150-450) k/uL MPV Neutrophils % % Lymphocytes % % Monocytes % % Eosinophils % % Basophils % % Neutrophils # (1.3-7.7) k/uL Lymphocytes # (1.0-4.8) k/uL Monocytes # (0-1.0) k/uL Eosinophils # (0-0.7) k/uL Basophils # (0-0.2) k/uL PT (10.0-12.5) sec INR (<1.2) APTT (22.0-30.0) sec D-Dimer 2.31 H (<0.60) mg/L FEU Sodium (137-145) mmol/L Potassium (3.5-5.1) mmol/L Chloride (98-107) mmol/L Carbon Dioxide (22-30) mmol/L Anion Gap mmol/L BUN (7-17) mg/dL Creatinine (0.52-1.04) mg/dL Est GFR (CKD-EPI)AfAm (>60 ml/min/1.73 sqM) Est GFR (CKD-EPI)NonAf (>60 ml/min/1.73 sqM) Glucose (74-99) mg/dL Lactic Ac Sepsis Rflx Y Plasma Lactic Acid Robbie (0.7-2.0) mmol/L Calcium (8.4-10.2) mg/dL Phosphorus (2.5-4.5) mg/dL Magnesium (1.6-2.3) mg/dL Total Bilirubin (0.2-1.3) mg/dL AST (14-36) U/L ALT (4-34) U/L Alkaline Phosphatase (38-126) U/L Creatine Kinase (30-135) U/L Troponin I (0.000-0.034) ng/mL NT-Pro-B Natriuret Pep pg/mL Total Protein (6.3-8.2) g/dL Albumin (3.5-5.0) g/dL Lipase (23-300) U/L Urine Color Light Yellow Urine Appearance Cloudy H (Clear) Urine pH 7.0 (5.0-8.0) Ur Specific [place] 1.039 H (1.001-1.035) Urine Protein Trace H (Negative) Urine Glucose (UA) 1+ H (Negative) Urine Ketones 2+ H (Negative) Urine Blood Negative (Negative) Urine Nitrite Negative (Negative) Urine Bilirubin Negative (Negative) Urine Urobilinogen <2.0 (<2.0) mg/dL Ur Leukocyte Esterase Negative (Negative) Urine RBC 1 (0-5) /hpf Urine WBC 3 (0-5) /hpf Ur Squamous Epith Cells 1 (0-4) /hpf Amorphous Sediment Rare H (None) /hpf Urine Bacteria Occasional H (None) /hpf Urine Mucus Rare H (None) /hpf - EKG Data -: EKG Interpreted by Me EKG Comments: EKG performed at 6: 51 sinus bradycardia with 43 DE 156 QRS 97 QT/QTc 550/501 prolonged QT noted Reviewed EKG performed at 10: 28 sinus bradycardia with a rate of 46 DE 157 QRS 100 QT/QTc 520/46 prolonged QT noted Critical Care Time Critical Care Time: Yes Total Critical Care Time: 35 Disposition Clinical Impression: NSTEMI (non-ST elevated myocardial infarction), Bradycardia, Prolonged QT int erval, Colitis Disposition: ADMITTED IP TO THIS HOSP
[2024-12-14] MEDS: SODIUM CHLORIDE 0.9% 1,000 ML IV STA (07:05)
[2024-12-14] MEDS: HYDROmorphone 0.5 MG/0.5 ML SYRINGE IVP STA (07:06)
[2024-12-14] MEDS: PANTOPRAZOLE 40 MG/10 ML VIAL IVP STA (07:07)
[2024-12-14] MEDS: ONDANSETRON 4 MG/2 ML VIAL IVP STA ×2 (07:09→17:49)
[2024-12-14] MEDS: METOCLOPRAMIDE 5 MG/ML 2 ML VIAL IVP STA (07:13)
[2024-12-14 07:16] LABS: Basophils % (A) 0 %; Eosinophils # (A) 0.1 k/uL (0-0.7); Eosinophils % (A) 1 %; HCT 46.3 % (34.0-46.0); HGB 14.6 gm/dL (11.4-16.0); Lymphocytes # (A) 1.5 k/uL (1.0-4.8); Lymphocytes % (A) 9 %; MCHC 31.5 g/dL (31.0-37.0); MCV 92.1 fL (80.0-100.0); Mean Platelet Volume 7.9; Monocytes # (A) 0.6 k/uL (0-1.0); Monocytes % (A) 4 %; Neutrophils % (A) 86 %; Platelet Count 341 k/uL (150-450); RBC 5.03 m/uL (3.80-5.40); RDW 12.4 % (11.5-15.5); WBC 16.3 k/uL (3.8-10.6)
[2024-12-14 07:23] LABS: ALT 49 U/L (4-34); AST 106 U/L (14-36); African American GFR (CKD) >90 (>60 ml/min/1.73 sqM); Alkaline Phosphatase 87 U/L (38-126); Anion Gap 10 mmol/L; Blood Urea Nitrogen 19 mg/dL (7-17); Calcium 9.3 mg/dL (8.4-10.2); Carbon Dioxide 27 mmol/L (22-30); Chloride 101 mmol/L (98-107); Glucose 208 mg/dL (74-99); Lipase 70 U/L (23-300); Non-African American GFR(CKD) >90 (>60 ml/min/1.73 sqM); Potassium 3.7 mmol/L (3.5-5.1); Sodium 138 mmol/L (137-145); Total Bilirubin 0.7 mg/dL (0.2-1.3); Total Protein 6.3 g/dL (6.3-8.2)
[2024-12-14 07:28] LABS: INR 0.9 (<1.2); Prothrombin Time 10.4 sec (10.0-12.5)
[2024-12-14 07:33] LABS: Partial Thromboplastin Time 21.2 sec (22.0-30.0)
[2024-12-14 08:42] LABS: Amorphous Sediment,Urine Rare /hpf; Appearance,Urine Cloudy (Clear); Bacteria,Urine Occasional /hpf; Bilirubin,Urine Negative (Negative); Blood,Urine Negative (Negative); Color,Urine Light Yellow; Glucose,Urine (UA) 1+ (Negative); Leukocyte Esterase,Urine Negative (Negative); Mucus,Urine Rare /hpf; Nitrite,Urine Negative (Negative); Protein,Urine Trace (Negative); RBC,Urine 1 /hpf (0-5); Specific Gravity,Urine 1.039 (1.001-1.035); Squamous Epithelial Cell,Urine 1 /hpf (0-4); Urobilinogen,Urine <2.0 mg/dL (<2.0); WBC,Urine 3 /hpf (0-5)
[2024-12-14 08:46] LABS: Ketones,Urine 2+ (Negative)
--- NOTE | 2024-12-14 08:52 | CT ---
EXAMINATION TYPE: CT abdomen pelvis w con DATE OF EXAM: 12/14/2024 HISTORY: Abdominal pain, NV and Diarrhea x [address] DLP: 740.2mGycm Automated Exposure Control for Dose Reduction was Utilized. CONTRAST: CT scan of the abdomen and pelvis is performed with IV Contrast, patient injected with 100 ml mL of I sovue 300. COMPARISON: CT October 30, 2014 FINDINGS: LUNG BASES: A few scattered small nodules are redemonstrated. For reference stable peripheral 4 mm ri ght lower lobe nodule axial image 1 and stable 5 mm subpleural left lower lobe nodule axial image 8. LIVER/GB: Cholecystectomy clips are redemonstrated. PANCREAS: No significant abnormality is seen. SPLEEN: No significant abnormality is seen. ADRENALS: No significant abnormality is seen. KIDNEYS: No significant abnormality is seen. BOWEL: Suboptimal evaluation without enteric contrast. No abnormal small or large bowel dilatation. M [id number] wall thickening involving the left and sigmoid colon and portions of transverse colon . UTERUS/ADNEXA: Uterus is surgically absent or markedly atrophic similar to prior. Surgical clip in th e right pelvis axial image 69 is redemonstrated similar to prior. LYMPH NODES: No greater than 1cm abdominal or pelvic lymph nodes are appreciated. OSSEOUS STRUCTURES: No significant abnormality is seen. OTHER: No significant additional abnormality is seen. IMPRESSION: No bowel obstruction. Possible uncomplicated acute colitis. Correlate clinically. Differe ntial includes infectious, inflammatory, and much less likely ischemic etiologies. [facility], , 12/14/2024 8:50 AM
[2024-12-14] MEDS ORDERED: HEPARIN SODIUM 1,000 UN/ML (10ML VL) IV PRN (08:55)
[2024-12-14 08:56] LABS: Magnesium 1.7 mg/dL (1.6-2.3); Phosphorus 2.7 mg/dL (2.5-4.5)
[2024-12-14] MEDS: HEPARIN SODIUM 1,000 UN/ML (10ML VL) IV ONE ×2 (09:29→11:39)
[2024-12-14] MEDS: HEPARIN SOD,PORK IN 0.45% NACL 25,000 UNIT in 0.45% NACL 1 250ML.BAG IV SCH (09:35)
[2024-12-14] MEDS: ASPIRIN 81 MG PO STA (09:36)
--- NOTE | 2024-12-14 09:41 | XR ---
EXAMINATION TYPE: XR chest 1V DATE OF EXAM: 12/14/2024 9:13 AM COMPARISON: None. CLINICAL INDICATION: Female, 54 years old with history of pain, TECHNIQUE: XR chest 1V view(s) obtained. FINDINGS: The heart size is normal. The pulmonary vasculature is normal. Mild right lower lobe infiltrate is present. Correlate for atelectasis or pneumonia. Follow-up can be performed. IMPRESSION: 1. Mild right lower lobe infiltrate. Correlate for atelectasis or pneumonia. [facility], , 12/14/2024 9:39 AM
--- NOTE | 2024-12-14 10:23 | US ---
EXAMINATION TYPE: US venous doppler duplex LE BI DATE OF EXAM: 12/14/2024 10:13 AM COMPARISON: NONE CLINICAL INDICATION: Female, 54 years old with history of elevated D-dimer; , Pain TECHNIQUE: The lower extremity deep venous system is examined utilizing real time linear array sonog zbigniew with graded compression, color doppler sonography, and spectral doppler. SIDE PERFORMED: Bilateral FINDINGS: VESSELS IMAGED: Common Femoral Vein Deep Femoral Vein Greater Saphenous Vein * Femoral Vein Popliteal Vein Small Saphenous Vein * Proximal Calf Veins (* superficial vessels) Right Leg: appears negative for DVT, Color Doppler imaging shows patency of the vessels. Spectral wa veforms are within normal limits. Left Leg: appears negative for DVT, Color Doppler imaging shows patency of the vessels. Spectral wa veforms are within normal limits. IMPRESSION: 1. Bilateral lower extremity ultrasound negative for deep venous thrombosis. [facility], , 12/14/2024 10:21 AM
[2024-12-14] MEDS ORDERED: metroNIDAZOLE-NS PMX 500 MG in SALINE 1 100ML.BAG IVPB SCH (10:30)
[2024-12-14] MEDS: NITROGLYCERIN SL TABS 0.4 MG TAB SUBLINGUAL PRN (10:31)
[2024-12-14] MEDS ORDERED: ALPRAZolam 0.5 MG TAB PO PRN (10:35)
[2024-12-14] MEDS ORDERED: ALPRAZolam 0.25 MG TAB PO PRN (10:35)
[2024-12-14] MEDS ORDERED: NITROGLYCERIN SL TABS 0.4 MG TAB SUBLINGUAL PRN (10:35)
[2024-12-14] MEDS: SODIUM BICARB 8.4% 50 ML SYR (1 MEQ/ML) IV STA (10:40)
--- NOTE | 2024-12-14 10:43 | P.HPIM ---
History of Present Illness This is a pleasant 54 years old female who presents initially because of abdominal pain. Patient states that all her symptoms started this morning early at 2:00 AM. She is complaining from epigastric pain about 8/10 in severity, nonradiating feels sharp sharp with no significant relieving and respiratory factors. Associated with vomiting about 3 times there is no blood mainly food in the vomitus and diarrhea about 2 times since started She denies chest pain or dyspnea, no headache dizziness weakness or numbness. She pees frequently. She is not a smoker. She denies alcohol or illicit drugs. She is afebrile and vital stable. She has leukocytosis of 16.3, rest of CBC, BMP is unremarkable. Liver enzymes mildly elevated. INR is within the reference range. Urinalysis is mildly dehydrated sample D-dimer is elevated 2.3 Troponin is high 0.14. Chest x-ray showing mild COPD changes with no acute infiltrate. EKG showing sinus bradycardia at [address]-T changes. QTc 501 CT of the abdomen and pelvis showing possible uncomplicated acute colitis. CTA of the chest is ordered and is pending Doppler of the lower extremities negative for DVT Review of Systems Review of systems CONSTITUTIONAL: No fever, no malaise, no fatigue. HEENT: No recent visual problems or hearing problems. Denied any sore throat. CARDIOVASCULAR: No orthopnea, PND, no palpitations, no syncope. PULMONARY: No shortness of breath, no cough, no hemoptysis. GASTROINTESTINAL: As above NEUROLOGICAL: No headaches, no weakness, no numbness. HEMATOLOGICAL: Denies any bleeding or petechiae. GENITOURINARY: Denies any burning micturition, frequency, or urgency. MUSCULOSKELETAL/RHEUMATOLOGICAL: Denies any joint pain, swelling, or any muscle pain. ENDOCRINE: Denies any polyuria or polydipsia. Past Medical History Past Medical History: No Reported History History of Any Multi-Drug Resistant Organisms: None Reported Past Surgical History: Section, Cholecystectomy, Hysterectomy Past Anesthesia/Blood Transfusion Reactions: No Reported Reaction Past Psychological History: ADD/ADHD, Anxiety, Depression Past Alcohol Use History: Occasional Past Drug Use History: None Reported Medications and Allergies Home Medications Medication Instructions Recorded Confirmed Type Citalopram Hydrobromide [CeleXA] 30 mg PO HS 12/14/24 12/14/24 History buPROPion SR [Wellbutrin SR] 100 mg PO DAILY 12/14/24 12/14/24 History Allergies Allergy/AdvReac Type Severity Reaction Status Date / Time amoxicillin Allergy Unknown Verified 12/14/24 09:34 Physical Exam Vitals: Vital Signs Temp Pulse Resp BP Pulse Ox 12/14/24 09:38 56 L 18 175/83 100 12/14/24 06:46 97.5 F L 41 L 17 155/89 100 Intake and Output 12/13/24 12/14/24 12/14/24 22:59 06:59 14:59 Other: Weight 72.575 kg GENERAL: The patient is alert and oriented x3, not in any acute distress. Well developed, well nourished. HEENT: Pupils are round and equally reacting to light. EOMI. No scleral icterus. No conjunctival pallor. Normocephalic, atraumatic. No pharyngeal erythema. No thyromegaly. CARDIOVASCULAR: S1 and S2 present. No murmurs, rubs, or gallops. PULMONARY: Chest is clear to auscultation, no wheezing , no crackles. -ABDOMEN: Soft, epigastric tenderness with mild guarding r, nondistended, normoactive bowel sounds. No palpable organomegaly. MUSCULOSKELETAL: No joint swelling or deformity. EXTREMITIES: No cyanosis, clubbing, or pedal edema. NEUROLOGICAL: Gross neurological examination did not reveal any focal deficits. SKIN: No rashes. no petechiae. Results CBC & Chem 7: 12/14/24 06:58 12/14/24 06:58 Labs: Abnormal Lab Results - Last 24 Hours (Table) 12/14/24 12/14/24 12/14/24 Range/Units 06:58 06:58 06:58 WBC 16.3 H (3.8-10.6) k/uL Hct 46.3 H (34.0-46.0) % Neutrophils # 14.0 H (1.3-7.7) k/uL APTT 21.2 L (22.0-30.0) sec D-Dimer (<0.60) mg/L FEU BUN 19 H (7-17) mg/dL Glucose 208 H (74-99) mg/dL Plasma Lactic Acid Robbie (0.7-2.0) mmol/L AST 106 H (14-36) U/L ALT 49 H (4-34) U/L Troponin I (0.000-0.034) ng/mL Urine Appearance (Clear) Ur Specific [place] (1.001-1.035) Urine Protein (Negative) Urine Glucose (UA) (Negative) Urine Ketones (Negative) Amorphous Sediment (None) /hpf Urine Bacteria (None) /hpf Urine Mucus (None) /hpf 12/14/24 12/14/24 12/14/24 Range/Units 06:58 06:58 06:58 WBC (3.8-10.6) k/uL Hct (34.0-46.0) % Neutrophils # (1.3-7.7) k/uL APTT (22.0-30.0) sec D-Dimer 2.31 H (<0.60) mg/L FEU BUN (7-17) mg/dL Glucose (74-99) mg/dL Plasma Lactic Acid Robbie 2.5 H* (0.7-2.0) mmol/L AST (14-36) U/L ALT (4-34) U/L Troponin I 0.148 H* (0.000-0.034) ng/mL Urine Appearance (Clear) Ur Specific [place] (1.001-1.035) Urine Protein (Negative) Urine Glucose (UA) (Negative) Urine Ketones (Negative) Amorphous Sediment (None) /hpf Urine Bacteria (None) /hpf Urine Mucus (None) /hpf 12/14/24 Range/Units 08:30 WBC (3.8-10.6) k/uL Hct (34.0-46.0) % Neutrophils # (1.3-7.7) k/uL APTT (22.0-30.0) sec D-Dimer (<0.60) mg/L FEU BUN (7-17) mg/dL Glucose (74-99) mg/dL Plasma Lactic Acid Robbie (0.7-2.0) mmol/L AST (14-36) U/L ALT (4-34) U/L Troponin I (0.000-0.034) ng/mL Urine Appearance Cloudy H (Clear) Ur Specific [place] 1.039 H (1.001-1.035) Urine Protein Trace H (Negative) Urine Glucose (UA) 1+ H (Negative) Urine Ketones 2+ H (Negative) Amorphous Sediment Rare H (None) /hpf Urine Bacteria Occasional H (None) /hpf Urine Mucus Rare H (None) /hpf Assessment and Plan Assessment: Acute colitis most likely secondary to gram-negative and anaerobic bacteria. Acute non-STEMI with bradycardia. Mild transaminitis. Elevated D-dimer with negative ultrasound of the leg, rule out PE. Prolonged QTc Plan: Start the patient on azithromycin and n and Flagyl. Patient is allergic to penicillin and she has QTc prolongation with limited use of antibiotics. Check blood culture, send stool studies Continue with heparin drip and aspirin. Continue with IV fluid Surgical team consult Cardiology team consult Labs and medication were reviewed.. Continue same treatment. Continue with symptomatic treatment. Resume home medication. Monitor labs and vitals. DVT and GI prophylaxis. Further recommendations as per clinical course of the patient DVT prophylaxis: heparin GI Prophylaxis: ppi Prognosis is guarded
[2024-12-14] MEDS: SODIUM CHLORIDE 0.9% 1,000 ML IV ONE (10:47)
[2024-12-14] MEDS: ATORVASTATIN 80 MG TAB PO STA (10:51)
[2024-12-14] MEDS: HEPARIN SODIUM,PORCINE (1 ML) 2,500 UNIT in SODIUM CHLORIDE 0.9% 250 ML IRRIGATION PRN (10:52)
[2024-12-14] MEDS: HEPARIN SODIUM,PORCINE 10,000 UNIT in SODIUM CHLORIDE 0.9% 1,000 ML IRRIGATION PRN (10:52)
[2024-12-14] MEDS: ASPIRIN 325 MG TAB PO STA (10:52)
[2024-12-14] MEDS: MIDAZOLAM 2 MG/2 ML VIAL IVP ONE (11:33)
[2024-12-14] MEDS: fentaNYL (PF) 50 MCG/ML 2 ML AMP IVP ONE (11:33)
[2024-12-14] MEDS: LIDOCAINE 1% INJ 10MG/ML (20 ML MDV) SQ ONE (11:34)
[2024-12-14] MEDS: VERAPAMIL SYRINGE (5 MG/10 ML) INTRAARTER ONE (11:35)
[2024-12-14] MEDS: IOPAMIDOL-370 100ML BTL INJ ONE (11:47)
[2024-12-14] MEDS ORDERED: AZTREONAM 1 GM in SODIUM CHLORIDE 0.9% 50 ML IVPB SCH (12:00)
--- NOTE | 2024-12-14 13:32 | P.GSCN ---
History of Present Illness Consult date: 12/14/24 History of present illness: CHIEF COMPLAINT: Abdominal pain HISTORY OF PRESENT ILLNESS: Patient presents the hospital with complaints of epigastric abdominal pain for the past 4 to 5 hours.. Patient had reported abdominal pain with nausea and vomiting. Patient denies any chest pain. Patient is CT scan abdomen pelvis reporting no bowel obstruction. Possible uncomplicated acute colitis. Patient also with elevated troponins has been seen by cardiology and is scheduled for heart catheterization today. Patient denies any prior history of similar symptoms. Surgical service consulted in regards to abdominal pain and colitis. Patient seen and examined with Dr. Amezquita in the ER PAST MEDICAL HISTORY: Depression PAST SURGICAL HISTORY: Section, Cholecystectomy, Hysterectomy MEDICATIONS: See below ALLERGIES: See below SOCIAL HISTORY: No illicit drug use. REVIEW OF SYSTEMS: CONSTITUTIONAL: Denies fever or chills. HEENT: Denies blurred vision, vision changes, or eye pain. Denies hemoptysis CARDIOVASCULAR: Denies chest pain or pressure. RESPIRATORY: No shortness of breath. GASTROINTESTINAL: See HPI for pertinent findings HEMATOLOGIC: Denies bleeding disorders. GENITOURINARY: Denies any blood in urine or increased urinary frequency. SKIN: Denies pruitis. Denies rash. PHYSICAL EXAM: VITAL SIGNS: Reviewed GENERAL: Well-developed in no acute distress. HEENT: No sclera icterus. Extraocular movements grossly intact. Moist buccal mucosa. Head is atraumatic, normocephalic. No nasal drainage. ABDOMEN: Soft. Nondistended. Significant tenderness palpation epigastric area and left upper quadrant. Guarding present. NEUROLOGIC: Alert and oriented. Cranial nerves II through XII grossly intact. LABORATORY DATA: WBC 16.3 Hgb 14.6 platelets 341 D-dimer elevated at 2.31 Sodium 138 potassium 3.7 creatinine 0.74 Lactic acid 2.5 Total bilirubin 0.7 AST 106 ALT 49 Elevated troponins IMAGING: CT scan abdomen pelvis reports no bowel obstruction. Possible uncomplicated acute colitis. Differentials include infectious inflammatory and much less likely ischemic etiologies. ASSESSMENT: 1. Acute abdomen. Possible colitis noted on CT 2. Elevated lactic acid level 3. Elevated troponins PLAN: -Continue to monitor -Continue antibiotics -Keep patient n.p.o. -Continue IV fluids -Patient scheduled for heart catheterization today with cardiology Physician Filter Operator note has been reviewed by physician. Signing provider agrees with the documented findings, assessment, and plan of care. Past Medical History Past Medical History: No Reported History History of Any Multi-Drug Resistant Organisms: None Reported Past Surgical History: Section, Cholecystectomy, Hysterectomy Past Anesthesia/Blood Transfusion Reactions: No Reported Reaction Past Psychological History: ADD/ADHD, Anxiety, Depression Past Alcohol Use History: Occasional Past Drug Use History: None Reported Medications and Allergies Home Medications Medication Instructions Recorded Confirmed Type Citalopram Hydrobromide [CeleXA] 30 mg PO HS 12/14/24 12/14/24 History buPROPion SR [Wellbutrin SR] 100 mg PO DAILY 12/14/24 12/14/24 History Allergies Allergy/AdvReac Type Severity Reaction Status Date / Time amoxicillin Allergy Unknown Verified 12/14/24 09:34 Surgical - Exam Vital Signs Temp Pulse Resp BP Pulse Ox 97.5 F L 41 L 17 155/89 100 12/14/24 06:46 12/14/24 06:46 12/14/24 06:46 12/14/24 06:46 12/14/24 06:46 Results - Labs 12/14/24 06:58 12/14/24 06:58 Abnormal Lab Results - Last 24 Hours (Table) 12/14/24 12/14/24 12/14/24 Range/Units 06:58 06:58 06:58 WBC 16.3 H (3.8-10.6) k/uL Hct 46.3 H (34.0-46.0) % Neutrophils # 14.0 H (1.3-7.7) k/uL APTT 21.2 L (22.0-30.0) sec D-Dimer (<0.60) mg/L FEU BUN 19 H (7-17) mg/dL Glucose 208 H (74-99) mg/dL Plasma Lactic Acid Robbie (0.7-2.0) mmol/L AST 106 H (14-36) U/L ALT 49 H (4-34) U/L Troponin I (0.000-0.034) ng/mL Urine Appearance (Clear) Ur Specific [place] (1.001-1.035) Urine Protein (Negative) Urine Glucose (UA) (Negative) Urine Ketones (Negative) Amorphous Sediment (None) /hpf Urine Bacteria (None) /hpf Urine Mucus (None) /hpf 12/14/24 12/14/24 12/14/24 Range/Units 06:58 06:58 06:58 WBC (3.8-10.6) k/uL Hct (34.0-46.0) % Neutrophils # (1.3-7.7) k/uL APTT (22.0-30.0) sec D-Dimer 2.31 H (<0.60) mg/L FEU BUN (7-17) mg/dL Glucose (74-99) mg/dL Plasma Lactic Acid Robbie 2.5 H* (0.7-2.0) mmol/L AST (14-36) U/L ALT (4-34) U/L Troponin I 0.148 H* (0.000-0.034) ng/mL Urine Appearance (Clear) Ur Specific [place] (1.001-1.035) Urine Protein (Negative) Urine Glucose (UA) (Negative) Urine Ketones (Negative) Amorphous Sediment (None) /hpf Urine Bacteria (None) /hpf Urine Mucus (None) /hpf 12/14/24 12/14/24 Range/Units 08:30 10:45 WBC (3.8-10.6) k/uL Hct (34.0-46.0) % Neutrophils # (1.3-7.7) k/uL APTT (22.0-30.0) sec D-Dimer (<0.60) mg/L FEU BUN (7-17) mg/dL Glucose (74-99) mg/dL Plasma Lactic Acid Robbie (0.7-2.0) mmol/L AST (14-36) U/L ALT (4-34) U/L Troponin I 0.676 H* (0.000-0.034) ng/mL Urine Appearance Cloudy H (Clear) Ur Specific [place] 1.039 H (1.001-1.035) Urine Protein Trace H (Negative) Urine Glucose (UA) 1+ H (Negative) Urine Ketones 2+ H (Negative) Amorphous Sediment Rare H (None) /hpf Urine Bacteria Occasional H (None) /hpf Urine Mucus Rare H (None) /hpf Diabetes panel 12/14/24 Range/Units 06:58 Sodium 138 (137-145) mmol/L Potassium 3.7 (3.5-5.1) mmol/L Chloride 101 (98-107) mmol/L Carbon Dioxide 27 (22-30) mmol/L BUN 19 H (7-17) mg/dL Creatinine 0.74 (0.52-1.04) mg/dL Glucose 208 H (74-99) mg/dL Calcium 9.3 (8.4-10.2) mg/dL AST 106 H (14-36) U/L ALT 49 H (4-34) U/L Alkaline Phosphatase 87 (38-126) U/L Total Protein 6.3 (6.3-8.2) g/dL Albumin 4.0 (3.5-5.0) g/dL Calcium panel 12/14/24 12/14/24 Range/Units 06:58 06:58 Calcium 9.3 (8.4-10.2) mg/dL Phosphorus 2.7 (2.5-4.5) mg/dL Albumin 4.0 (3.5-5.0) g/dL Pituitary panel 12/14/24 Range/Units 06:58 Sodium 138 (137-145) mmol/L Potassium 3.7 (3.5-5.1) mmol/L Chloride 101 (98-107) mmol/L Carbon Dioxide 27 (22-30) mmol/L BUN 19 H (7-17) mg/dL Creatinine 0.74 (0.52-1.04) mg/dL Glucose 208 H (74-99) mg/dL Calcium 9.3 (8.4-10.2) mg/dL Adrenal panel 12/14/24 Range/Units 06:58 Sodium 138 (137-145) mmol/L Potassium 3.7 (3.5-5.1) mmol/L Chloride 101 (98-107) mmol/L Carbon Dioxide 27 (22-30) mmol/L BUN 19 H (7-17) mg/dL Creatinine 0.74 (0.52-1.04) mg/dL Glucose 208 H (74-99) mg/dL Calcium 9.3 (8.4-10.2) mg/dL Total Bilirubin 0.7 (0.2-1.3) mg/dL AST 106 H (14-36) U/L ALT 49 H (4-34) U/L Alkaline Phosphatase 87 (38-126) U/L Total Protein 6.3 (6.3-8.2) g/dL Albumin 4.0 (3.5-5.0) g/dL
--- NOTE | 2024-12-14 13:41 | P.CRDCN ---
History of Present Illness Consult date: 12/14/24 Reason for Consult (text): Elevated troponin History of present illness: This is a 54-year-old female with past medical history of psychiatric issues follows with [facility]. She denies cardiac history and does not follow with a [facility]. Patient states that she came into the hospital due to stomach pain in the epigastric area that had been going on for few months. It at times is a stabbing type pain but now achy. She states she also had some vomiting and diarrhea with each episode of abdominal pain. She denies any blood or tarriness to her stools. The episodes are happening about once a month and getting worse. When she has the pain she states that it is a number 8 out of 10. She also has sweating, shortness of breath. Now she feels tired. Patient does have point tenderness in the epigastric area. Blood pressure 175/83, heart rate 56, pulse ox 100% on room air. Patient denies history of hypertension. Patient is seen today in the emergency center waiting for bed on the cardiac stepdown unit. Dr. Sutton discussed recommendations for cardiac catheterization which she is agreeable to move forward with. Patient is provided with nitroglycerin sublingual x 1 and GI cocktail. Patient has been st arted on a heparin drip. -EKG: Sinus rhythm ventricular rate of 43, no acute ST changes. -Chest x-ray: Right lower lobe infiltrate atelectasis or pneumonia -CT of the abdomen and pelvis with contrast revealed possible acute colitis -Laboratory studies: Troponin 0.148. BNP 137. AST 106, ALT 49. Lactic acid 2.5. D-dimer 2.31. WBC 16.3 and hemoglobin 14.6. -Home cardiac medications: None Review Of Systems: At the time of my exam: CONSTITUTIONAL: Denies fever or chills. HEENT: Denies blurred vision, vision changes, or eye pain. Denies hemoptysis CARDIOVASCULAR: Denies chest pain. Denies orthopnea. Denies PND. Denies palpitations RESPIRATORY: Denies shortness of breath. GASTROINTESTINAL: Reports abdominal pain. Denies nausea or vomiting. HEMATOLOGIC: Denies bleeding disorders. GENITOURINARY: Denies any blood in urine. SKIN: Denies puritis. Denies rash. Physical examination: Gen: This is a 54-year-old female in no acute distress VS: reviewed HEENT: Head is atraumatic, normocephalic. Pupils equal, round. Sclerae is anicteric. NECK: Supple. No JVD. LUNGS: Clear to auscultation. No wheezes or rhonchi. No intercostal retractions. HEART: Regular rate and rhythm. No murmur. ABDOMEN: Soft epigastric tenderness. EXTREMITIES: No pedal edema. No calf tenderness. NEUROLOGICAL: Patient is awake, alert and oriented x3. Assessment: Abdominal pain Elevated troponin, possible NSTEMI Lactic acidosis Leukocytosis Elevated D-dimer, VQ scan was ordered by ER Plan: Continue heparin drip Schedule patient for cardiac catheterization today with Dr. Sutton Obtain 2-D echocardiogram and Doppler study to assess cardiac structure and function Further recommendations to follow based upon clinical course Thank you kindly for this consultation. Nurse practitioner note has been reviewed, I agree with documented findings and plan of care. Patient was seen and examined. Past Medical History Past Medical History: No Reported History History of Any Multi-Drug Resistant Organisms: None Reported Past Surgical History: Section, Cholecystectomy, Hysterectomy Past Anesthesia/Blood Transfusion Reactions: No Reported Reaction Past Psychological History: ADD/ADHD, Anxiety, Depression Past Alcohol Use History: Occasional Past Drug Use History: None Reported Medications and Allergies Home Medications Medication Instructions Recorded Confirmed Type Citalopram Hydrobromide [CeleXA] 30 mg PO HS 12/14/24 12/14/24 History buPROPion SR [Wellbutrin SR] 100 mg PO DAILY 12/14/24 12/14/24 History Allergies Allergy/AdvReac Type Severity Reaction Status Date / Time amoxicillin Allergy Unknown Verified 12/14/24 09:34 Physical Exam Vitals: Vital Signs Temp Pulse Resp BP Pulse Ox 12/14/24 09:38 56 L 18 175/83 100 12/14/24 06:46 97.5 F L 41 L 17 155/89 100 Intake and Output 12/13/24 12/14/24 12/14/24 22:59 06:59 14:59 Other: Weight 72.575 kg Results 12/14/24 06:58 12/14/24 06:58 Cardiac Enzymes 12/14/24 12/14/24 Range/Units 06:58 06:58 AST 106 H (14-36) U/L Troponin I 0.148 H* (0.000-0.034) ng/mL Coagulation 12/14/24 Range/Units 06:58 PT 10.4 (10.0-12.5) sec APTT 21.2 L (22.0-30.0) sec CBC 12/14/24 Range/Units 06:58 WBC 16.3 H (3.8-10.6) k/uL RBC 5.03 (3.80-5.40) m/uL Hgb 14.6 (11.4-16.0) gm/dL Hct 46.3 H (34.0-46.0) % Plt Count 341 (150-450) k/uL Comprehensive Metabolic Panel 12/14/24 Range/Units 06:58 Sodium 138 (137-145) mmol/L Potassium 3.7 (3.5-5.1) mmol/L Chloride 101 (98-107) mmol/L Carbon Dioxide 27 (22-30) mmol/L BUN 19 H (7-17) mg/dL Creatinine 0.74 (0.52-1.04) mg/dL Glucose 208 H (74-99) mg/dL Calcium 9.3 (8.4-10.2) mg/dL AST 106 H (14-36) U/L ALT 49 H (4-34) U/L Alkaline Phosphatase 87 (38-126) U/L Total Protein 6.3 (6.3-8.2) g/dL Albumin 4.0 (3.5-5.0) g/dL Current Medications Generic Name Dose Route Start Last Admin Trade Name Freq PRN Reason Stop Dose Admin Aspirin 325 mg 12/15/24 09:00 Aspirin 325 Mg Tab PO DAILY [facility] Heparin Sodium (Porcine) 0 unit 12/14/24 08:55 Heparin Sodium 1,000 Un/Ml (10ml Vl) IV PER PROTOCOL PRN Low PTT Protocol Heparin Sodium/Sodium Chloride 250 mls @ 8.709 mls/hr 12/14/24 09:00 12/14/24 09:35 25,000 unit/ Sodium Chloride IV 12 units/kg/hr .Q24H MONO 8.709 mls/hr Administration Protocol 12 UNITS/KG/HR Levofloxacin/Dextrose 500 mg/ 100 mls @ 50 mls/hr 12/14/24 10:30 IV Solution IVPB Q24H [facility] Protocol Metronidazole 500 mg/ IV 100 mls @ 100 mls/hr 02/26/25 10:30 Solution IVPB Q8HR MONO Protocol Nitroglycerin 0.4 mg 12/14/24 09:06 Nitroglycerin Sl Tabs 0.4 Mg Tab SUBLINGUAL Q5M PRN Chest Pain Intake and Output 12/13/24 12/14/24 12/14/24 22:59 06:59 14:59 Other: Weight 72.575 kg 12/14/24 06:58 12/14/24 06:58
[2024-12-14] MEDS: LIDOCAINE VISCOUS 2% 15 ML CUP PO ONE (14:33)
--- NOTE | 2024-12-14 16:12 | P.CARDCATH ---
Description of Procedure: PROCEDURES PERFORMED: Left heart catheterization, bilateral coronary angiography, ultrasound guided arterial access, left ventriculogram INDICATION: Non-STEMI CONSENT:I have discussed the risks, benefits and alternative therapies for the above-mentioned procedure and for both sedation/analgesia as well as necessary blood product administration, if indicated, as they pertain to this patient. The patient has indicated understanding and acceptance of the risks and procedures discussed. PROCEDURE: After the risks, benefits and alternatives of the above mentioned procedure explained in detail with the patient, informed consent was obtained. Patient was taken to the catheterization lab and prepped and draped in usual fashion. Ultrasound guidance was used to assess for arterial access. 1% lidocaine was used to anesthetize the right radial artery. A 6-Montenegrin sheath was placed in the right radial artery using modified Seldinger technique and ultrasound guidance. Left coronary angiography was performed with a 5-Montenegr[place] JL 3.5 catheter and right coronary angiography was performed with a 5-[place]gr[place] FR5 catheter in various views. A 5-[place]gr[place] FR5 catheter was inserted into the left ventricle and pressure measurements were obtained. A left ventriculogram was performed in the SANT[place] projection with power injection. The right radial sheath was removed and a TR band was placed with hemostasis achieved. The patient tolerated the procedure well. Patient was transported back to the post catheterization holding area in stable condition. Conscious Sedation: Patient was monitored under the direct supervision of myself for conscious sedation using Versed and fentanyl for a total duration of 14 minutes HEMODYNAMICS: Aorta: 118/72 LV: 114/12, LVEDP 22 SELECTIVE CORONARY ARTERIOGRAPHY: LEFT MAIN: The left main is a large caliber vessel which bifurcates into the LAD and circumflex. There is no significant stenosis. LEFT ANTERIOR DESCENDING CORONARY ARTERY: LAD is a large caliber vessel which wraps around to the apex. There is no significant stenosis. LEFT CIRCUMFLEX CORONARY ARTERY: Left circumflex is a moderate caliber vessel without significant stenosis. RIGHT CORONARY ARTERY: The right coronary artery is a large caliber vessel which gives off a PDA and PLV branch and is the dominant vessel. There is no s ignificant stenosis. Left ventriculogram: Left ventricular ejection fraction 50 to 55% with mid inferior hypokinesis and mild mid anterior wall hypokinesis possibly consistent with Takotsubo's variant FINAL IMPRESSION: 1. Normal coronary arteries as described above. 2. Mildly elevated left sided filling pressures 3. LV EF 50-55% with mid inferior and mid anterior wall hypokinesis possibly co nsistent with Takotsubo's variant vs myocarditis PLAN: 1. Aggressive risk factor modification per most recent ACC/AHA guidelines. 2. Follow-up in the office in 1-2 weeks.
[2024-12-14] MEDS: LEVOFLOXACIN 250MG-D5W PMX 500 MG in DEXTROSE/WATER 1 50ML.BAG IVPB SCH (16:29)
[2024-12-14] MEDS: MAG HYDROX/AL HYDROX/SIMETH 30 ML CUP PO PRN (16:37)
[2024-12-14] MEDS: metroNIDAZOLE-NS PMX 500 MG in SALINE 1 100ML.BAG IVPB SCH (16:37)
[2024-12-14] MEDS ORDERED: ONDANSETRON 4 MG/2 ML VIAL IVP PRN (17:38)
[2024-12-14] MEDS: ACETAMINOPHEN TAB 325 MG TAB PO STA (17:47)
[2024-12-14] MEDS: AZTREONAM 1 GM in SODIUM CHLORIDE 0.9% 50 ML IVPB SCH (17:48)
--- NOTE | 2024-12-14 22:53 | NM ---
EXAMINATION TYPE: NM pul vent and perfuse DATE OF EXAM: 12/14/2024 CLINICAL INDICATION: Female, 54 years old with history of elevated d-dimer, pain; COMPARISON: Chest x-ray 12/14/2024 TECHNIQUE: Utilizing inhalation of 38.8 mCi Tc 99m DTPA aerosol and intravenous injection of 4.9 mCi of Tc 99m MAA, ventilation and perfusion images are acquired post injection in multiple projections. FINDINGS: No moderate or large mismatched defects are evident. No triple matched defects evident. IMPRESSION: Low probability for pulmonary embolism [facility] Naa Guevara, , 12/14/2024 10:50 PM
[2024-12-14] MEDS: ACETAMINOPHEN TAB 325 MG TAB PO PRN (23:44)
[2024-12-15] MEDS: ASPIRIN 81 MG PO SCH (08:14)
[2024-12-15 08:24] LABS: Basophils % (A) 1 %; Eosinophils # (A) 0.1 k/uL (0-0.7); Eosinophils % (A) 1 %; HCT 41.5 % (34.0-46.0); HGB 13.1 gm/dL (11.4-16.0); Lymphocytes # (A) 2.2 k/uL (1.0-4.8); Lymphocytes % (A) 24 %; MCH 29.8 pg (25.0-35.0); MCHC 31.7 g/dL (31.0-37.0); Mean Platelet Volume 7.8; Monocytes # (A) 0.6 k/uL (0-1.0); Monocytes % (A) 7 %; Neutrophils # (A) 5.8 k/uL (1.3-7.7); Neutrophils % (A) 66 %; Platelet Count 293 k/uL (150-450); RBC 4.41 m/uL (3.80-5.40); RDW 12.7 % (11.5-15.5); WBC 8.9 k/uL (3.8-10.6)
[2024-12-15] MEDS ORDERED: ASPIRIN 325 MG TAB PO SCH (09:00)
[2024-12-15 11:32] LABS: Chol/HDL Ratio 3.38 Ratio; LDL Cholesterol,Calculated 132.6 mg/dL (0.0-131.0)
--- NOTE | 2024-12-15 12:38 | CA ---
Transthoracic Echo Report Name: Katy Arrieta Age: 54 Gender: F : 1970 Exam Date: 12/15/2024 09:34 Exam Location: [facility] Ht (in): 65 Wt (lb): 160 Ordering Physician: Royer Streeter PAC Attending/Referring Phys: VALENTINO, Syl Automatic Profile Shaper Operator Laura Sherman, PRINCESS Procedure CPT: Indications: NSTEMI, bradycardia Cardiac Hx: Technical Quality: Fair Contrast 1: Definity Total Dose (mL): 2 Contrast 2: Total Dose (mL): MEASUREMENTS (Male / Female) Normal Values 2D ECHO LV Diastolic Diameter PLAX 4.8 cm 4.2 - 5.9 / 3.9 - 5.3 cm LV Systolic Diameter PLAX 4.3 cm IVS Diastolic Thickness 1.1 cm 0.6 - 1.0 / 0.6 - 0.9 cm LVPW Diastolic Thickness 1.1 cm 0.6 - 1.0 / 0.6 - 0.9 cm LV Relative Wall Thickness 0.5 RV Internal Dim ED PLAX 1.6 cm LA Systolic Diameter LX 3.3 cm 3.0 - 4.0 / 2.7 - 3.8 cm LV Diastolic Volume MOD BP 103.8 cm??? 67 - 155 / 56 - 104 cm??? LV Systolic Volume MOD BP 45.4 cm??? - 58 / 19 - 49 cm??? LV Ejection Fraction MOD BP 56.3 % >= 55 % LV Cardiac Index MOD BP 1808.4 cm???/min???m??? LV Diastolic Volume MOD 4C 101.3 cm??? LV Systolic Volume MOD 4C 46.1 cm??? LV Ejection Fraction MOD 4C 54.5 % LV Cardiac Index MOD 4C 1709.9 cm???/min???m??? LV Diastolic Length 4C 7.6 cm LV Systolic Length 4C 6.4 cm LV Diastolic Volume MOD 2C 106.7 cm??? LV Systolic Volume MOD 2C 42.3 cm??? LV Ejection Fraction MOD 2C 60.3 % LV Cardiac Index MOD 2C 1995.2 cm???/min???m??? LV Diastolic Length 2C 7.8 cm LV Systolic Length 2C 6.0 cm LA Volume 55.3 cm??? 18 - 58 / 22 - 52 cm??? LA Volume Index 30.0 cm???/m??? 16 - 28 cm???/m??? M-MODE Aortic Root Diameter MM 3.3 cm LA Systolic Diameter MM 2.9 cm LA Ao Ratio MM 0.9 AV Cusp Separation MM 1.8 cm DOPPLER AI Peak Velocity 310.9 cm/s AI Peak Gradient 38.7 mmHg AI Pressure Half Time 1088.5 ms LVOT Peak Velocity 135.2 cm/s LVOT Peak Gradient 7.3 mmHg LVOT Velocity Time Integral 34.6 cm MV Area PHT 2.5 cm??? Mitral E Point Velocity 91.2 cm/s Mitral A Point Velocity 90.1 cm/s Mitral E to A Ratio 1.0 MV Deceleration Time 308.6 ms TR Peak Velocity 254.7 cm/s TR Peak Gradient 26.0 mmHg Right Ventricular Systolic Press 29.7 mmHg FINDINGS Left Ventricle Left ventricular ejection fraction is estimated at 35-40%. Mildly increased septal wall thickness. Mildly increased posterior wall thickness. Hypokinetic septum. Hypokinetic inferior wall. Right Ventricle Normal right ventricular size and function. Right ventricular systolic pressure within normal limits. Right Atrium Mild right atrial dilatation. Left Atrium Mildly increased left atrial volume. Mitral Valve Structurally normal mitral valve. Aortic Valve Trileaflet aortic valve. Mild aortic regurgitation. No aortic stenosis. Tricuspid Valve Structurally normal tricuspid valve. [id number] tricuspid regurgitation. No tricuspid stenosis. Pulmonic Valve Structurally normal pulmonic valve. Trace pulmonic regurgitation. No pulmonic stenosis. Pericardium No pericardial or pleural effusion. Aorta Normal size aortic root and proximal ascending aorta. CONCLUSIONS Left ventricular ejection fraction is estimated at 35-40%. Hypokinetic infero-septal wall Mild biatrial dilatation [id number] tricuspid regurgitation. Mild aortic regurgitation. Previewed by: Dr Bhargav Aguilar (Electronically Signed) Final Date: 15 December 2024 12:37
--- NOTE | 2024-12-15 12:39 | P.PN ---
Subjective Progress Note Date: 12/15/24 Reason for Consult (text): Elevated troponin History of present illness: This is a 54-year-old female with past medical history of psychiatric issues gretta dasilva with [facility]. 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 Patient states that she came into the hospital due to stomach pain in the epigastric area that had been going on for few months. It at times is a stabbing type pain but now achy. She states she also had some vomiting and diarrhea with each episode of abdominal pain. She denies any blood or tarriness to her stools. The episodes are happening about once a month and getting worse. When she has the pain she states that it is a number 8 out of 10. She also has sweating, shortness of breath. Now she feels tired. Patient does have point tenderness in the epigastric area. Blood pressure 175/83, heart rate 56, pulse ox 100% on room air. Patient denies history of hypertension. Patient is seen today in the emergency center waiting for bed on the cardiac stepdown unit. Dr. Sutton discussed recommendations for cardiac catheterization which she is agreeable to move forward with. Patient is provided with nitroglycerin sublingual x 1 and GI cocktail. Patient has been started on a heparin drip. -EKG: Sinus rhythm ventricular rate of 43, no acute ST changes. -Chest x-ray: Right lower lobe infiltrate atelectasis or pneumonia -CT of the abdomen and pelvis with contrast revealed possible acute colitis -Laboratory studies: Troponin 0.148. BNP 137. AST 106, ALT 49. Lactic acid 2.5. D-dimer 2.31. WBC 16.3 and hemoglobin 14.6. -Home cardiac medications: None 12/15 Patient seen and examined on the cardiac stepdown unit. Yesterday, patient underwent cardiac cath which revealed normal coronary arteries. Mildly elevated left-sided filling pressures. LVEF 50 to 55% with mid inferior and mid anterior wall hypokinesis possibly consistent with Takotsubo variant versus myocarditis. VQ scan low probability for pulmonary embolism. Blood pressure 114/58, heart rate 54, pulse ox 98% on room air. Physical examination: Gen: This is a 54-year-old female in no acute distress VS: reviewed HEENT: Head is atraumatic, normocephalic. Pupils equal, round. Sclerae is anicteric. LUNGS: Clear to auscultation. No wheezes or rhonchi. No intercostal retractions. HEART: Regular rate and rhythm. No murmur. ABDOMEN: Soft epigastric tenderness. EXTREMITIES: No pedal edema. No calf tenderness. NEUROLOGICAL: Patient is awake, alert and oriented x3. Assessment: Abdominal pain Elevated troponin, possible NSTEMI Stress-induced cardiomyopathy with mildly reduces EF Lactic acidosis Leukocytosis Elevated D-dimer, VQ scan was ordered by ER Plan: Continue aspirin x 4weeks No BB due to bradycardia Patient is cleared for discharge home and may follow up with Dr. Sutton in 4 weeks. Nurse practitioner note has been reviewed, I agree with documented findings and plan of care. Patient was seen and examined. Objective - Vital Signs Vital signs: Vital Signs Temp 98.4 F 12/15/24 11:34 Pulse 54 L 12/15/24 11:34 Resp 17 12/15/24 11:34 BP 114/58 12/15/24 11:34 Pulse Ox 98 12/15/24 11:34 FiO2 Intake & Output 12/14/24 12/15/24 12/15/24 18:59 06:59 18:59 Intake Total 540 Balance 540 Weight 72.575 kg 88 kg Intake: IV 450 Oral 90 Other: Voiding Method Toilet Toilet Toilet - Labs CBC & Chem 7: 12/15/24 07:51 12/14/24 06:58 Labs: Abnormal Lab Results - Last 24 Hours (Table) 12/14/24 Range/Units 06:58 Cholesterol 224.00 H (0.00-200.00) mg/dL LDL Cholesterol, Calc 132.6 H (0.0-131.0) mg/dL HDL Cholesterol 66.20 H (40.00-60.00) mg/dL
--- NOTE | 2024-12-15 12:43 | P.PN ---
Subjective Progress Note Date: 12/15/24 SURGICAL PROGRESS NOTE CHIEF COMPLAINT: colitis HISTORY OF PRESENT ILLNESS: Patient reports her abdominal pain has resolved. She did have 1 episode of vomiting yesterday. She had a small bowel movement. She feels hungry and is requesting food. Patient had heart catheterization completed yesterday with cardiology service revealed normal coronary arteries. Mid inferior and mid anterior wall hypokinesis consistent with Takotsubo variant versus myocarditis. Afebrile. WBC is 8.9 PHYSICAL EXAM: VITAL SIGNS: Reviewed. GENERAL: Well-developed in no acute distress. ABDOMEN: Soft. Nondistended. Nontender. NEUROLOGIC: Alert and oriented. Cranial nerves II through XII grossly intact. ASSESSMENT: 1. Colitis with sepsis present on admission, resolving PLAN: -Advance diet to clear liquids -Recommend outpatient colonoscopy next week Physician Singeing Torch Operator note has been reviewed by physician. Signing provider agrees with the documented findings, assessment, and plan of care. Objective - Vital Signs Vital signs: Vital Signs Temp 98.4 F 12/15/24 11:34 Pulse 54 L 12/15/24 11:34 Resp 17 12/15/24 11:34 BP 114/58 12/15/24 11:34 Pulse Ox 98 12/15/24 11:34 FiO2 Intake & Output 12/14/24 12/15/24 12/15/24 18:59 06:59 18:59 Intake Total 540 Balance 540 Weight 72.575 kg 88 kg Intake: IV 450 Oral 90 Other: Voiding Method Toilet Toilet Toilet - Labs CBC & Chem 7: 12/15/24 07:51 12/14/24 06:58 Labs: Abnormal Lab Results - Last 24 Hours (Table) 12/14/24 Range/Units 06:58 Cholesterol 224.00 H (0.00-200.00) mg/dL LDL Cholesterol, Calc 132.6 H (0.0-131.0) mg/dL HDL Cholesterol 66.20 H (40.00-60.00) mg/dL
[2024-12-15 14:36] VITALS: BMI 32.3
[2024-12-15 15:43] VITALS: RESP 16
--- NOTE | 2024-12-15 18:44 | P.PN ---
Subjective This is a pleasant 54 years old female who presents initially because of abdominal pain. Patient states that all her symptoms started this morning early at 2:00 AM. She is complaining from epigastric pain about 8/10 in severity, nonradiating feels sharp sharp with no significant relieving and respiratory factors. Associated with vomiting about 3 times there is no blood mainly food in the vomitus and diarrhea about 2 times since started She denies chest pain or dyspnea, no headache dizziness weakness or numbness. She pees frequently. She is not a smoker. She denies alcohol or illicit drugs. She is afebrile and vital stable. She has leukocytosis of 16.3, rest of CBC, BMP is unremarkable. Liver enzymes mildly elevated. INR is within the reference range. Urinalysis is mildly dehydrated sample D-dimer is elevated 2.3 Troponin is high 0.14. Chest x-ray showing mild COPD changes with no acute infiltrate. EKG showing sinus bradycardia at [address]-T changes. QTc 501 CT of the abdomen and pelvis showing possible uncomplicated acute colitis. CTA of the chest is ordered and is pending Doppler of the lower extremities negative for DVT 12/15 Patient states her abdominal pain has improved today, she has only mild epigas tric tenderness, patient states this is a chronic. Patient was placed on liquid diet by surgery team and tolerates that as well. Patient she feels fine and wants to advance diet. We are going to advance to regular diet. After the meal she felt some headache and required Tylenol and she went to sleep. She denies chest pain and dyspnea and freight rate specialist evaluated her for non-STEMI. Elevated D-dimer was checked with venous Doppler negative for DVT and perfusion scan was checked which was low probability for PE. Laboratory Manager already cleared the patient for discharge to follow-up outpatient with Dr. Sutton in 4 weeks Possible discharge in 24 to 48 hours if she keeps improving Objective - Vital Signs Vital signs: Vital Signs Temp 98.4 F 12/15/24 15:41 Pulse 64 12/15/24 15:41 Resp 16 12/15/24 15:41 BP 120/65 12/15/24 15:41 Pulse Ox 98 12/15/24 15:41 FiO2 Intake & Output 12/14/24 12/15/24 12/15/24 18:59 06:59 18:59 Intake Total 540 Balance 540 Weight 72.575 kg 88 kg 88 kg Intake: IV 450 Oral 90 Other: Voiding Method Toilet Toilet Toilet # Voids 4 - Exam GENERAL: The patient is alert and oriented x3, not in any acute distress. Well developed, well nourished. HEENT: Pupils are round and equally reacting to light. EOMI. No scleral icterus. No conjunctival pallor. Normocephalic, atraumatic. No pharyngeal erythema. No thyromegaly. CARDIOVASCULAR: S1 and S2 present. No murmurs, rubs, or gallops. PULMONARY: Chest is clear to auscultation, no wheezing , no crackles. -ABDOMEN: Soft, n mild epigastric tenderness er, nondistended, normoactive bowel sounds. No palpable organomegaly. MUSCULOSKELETAL: No joint swelling or deformity. EXTREMITIES: No cyanosis, clubbing, or pedal edema. NEUROLOGICAL: Gross neurological examination did not reveal any focal deficits. SKIN: No rashes. no petechiae. - Labs CBC & Chem 7: 12/15/24 07:51 12/14/24 06:58 Labs: Abnormal Lab Results - Last 24 Hours (Table) 12/14/24 Range/Units 06:58 Cholesterol 224.00 H (0.00-200.00) mg/dL LDL Cholesterol, Calc 132.6 H (0.0-131.0) mg/dL HDL Cholesterol 66.20 H (40.00-60.00) mg/dL Assessment and Plan Assessment: Acute colitis most likely secondary to gram-negative and anaerobic bacteria. Acute non-STEMI with bradycardia. Improved Mild transaminitis. Elevated D-dimer with negative ultrasound of the leg, ru PE Ruled out with negative perfusion scan Prolonged QTc, improved Plan: Cardiology cleared the patient for discharge Surgery team recommended advance diet. Patient tolerated liquid diet and advance to regular diet Patient states she is taking ceftriaxone before, will switch antibiotics to Flagyl and Rocephin. Continue with aspirin Discontinue heparin drip Labs and medication were reviewed.. Continue same treatment. Continue with sy mptomatic treatment. Resume home medication. Monitor labs and vitals. DVT and GI prophylaxis. Further recommendations as per clinical course of the patient DVT prophylaxis: heparin GI Prophylaxis: ppi Prognosis is guarded Possible discharge 24 to 48 hours
[2024-12-15] MEDS: HEPARIN SODIUM,PORCINE 5,000 UNIT/ML 1 ML VIAL SQ SCH (19:30)
[2024-12-16 09:16] VITALS: BP 136/80; PULSE 66; TEMP 98.5
--- NOTE | 2024-12-16 10:12 | P.PN ---
Subjective Progress Note Date: 12/16/24 SURGICAL PROGRESS NOTE CHIEF COMPLAINT: colitis HISTORY OF PRESENT ILLNESS: Patient reports no abdominal pain. She is tolerating regular diet. Denies any nausea or vomiting. She is afebrile. She wants to be discharged. WBC normalized from 16.3-8.9 PHYSICAL EXAM: VITAL SIGNS: Reviewed. GENERAL: Well-developed in no acute distress. ABDOMEN: Soft. Nondistended. Nontender. NEUROLOGIC: Alert and oriented. Cranial nerves II through XII grossly intact. ASSESSMENT: 1. Colitis with sepsis present on admission, resolved PLAN: -Patient can be discharged from surgical standpoint -Recommend outpatient colonoscopy -Recommend antibiotics at discharge Physician Database Management System Specialist note has been reviewed by physician. Signing provider agrees with the documented findings, assessment, and plan of care. Objective - Vital Signs Vital signs: Vital Signs Temp 98.5 F 12/16/24 08:45 Pulse 66 12/16/24 08:45 Resp 16 12/16/24 08:45 BP 136/80 12/16/24 08:45 Pulse Ox 99 12/16/24 08:45 FiO2 Intake & Output 12/15/24 12/16/24 12/16/24 18:59 06:59 18:59 Intake Total 240 240 Balance 240 240 Weight 88 kg 72.6 kg Intake: Oral 240 240 Other: Voiding Method Toilet Toilet # Voids 3 1 - Labs CBC & Chem 7: 12/15/24 07:51 12/14/24 06:58 Labs: Abnormal Lab Results - Last 24 Hours (Table) 12/14/24 Range/Units 06:58 Cholesterol 224.00 H (0.00-200.00) mg/dL LDL Cholesterol, Calc 132.6 H (0.0-131.0) mg/dL HDL Cholesterol 66.20 H (40.00-60.00) mg/dL Microbiology - Last 24 Hours (Table) 12/14/24 10:43 Blood Culture - Preliminary Blood
--- NOTE | 2024-12-16 13:34 | CDI ---
Documentation Clarification Form Date: 12/16/2024 12:39:24 PM From: Shanice Reece RN, CCDS Phone: [phone] Admit Date: 12/14/2024 10:04:00 AM Patient Name: Katy Arrieta Visit Number: [id number] Discharge Date: ATTENTION: The Clinical Documentation Specialists (CDI) and [facility] Coding Staff appreciate your assistance in clarifying documentation. Please respond to the clarification below the line at the bottom and electronically sign. The CDI & [facility] Coding staff will review the response and follow-up if needed. Please note: Queries are made part of the Legal Health Record. If you have any questions, please contact the author of this message via ITS. Doctor. Dasilva E Sheet Colitis with Sepsis present on admission, resolving is documented in the surgical progress notes starting on 12/15/24 which may lack sufficient clinical evidence/support in the medical record. Additional clarification is requested. History/Risk Factors: chief complaint of epigastric abdominal pain. Clinical Indicators: 54-year-old female complaining from epigastric pain about 8/10 in severity, nonradiating, associated with vomiting. CT of the abdomen and pelvis showing possible uncomplicated acute colitis. EKG showing sinus bradycardia at [address]-T changes. QTc 501 12/14 VS: 155/89 41 17 97.5 100% RA 12/14 Labs: WBC 16.3 Neutrophils 14.0 BUN 19 Cr 0.74 Lactic acid 2.5 Troponin 0.148, 0.676, BNP 137 Treatment: Auto Haulaway Driver / Telemetry Rocephin 1 GM IVPB Q 24 HRS After work up and study, please clarify which diagnosis is most appropriate? [ x ] Sepsis ruled out [ ] Sepsis treated prophylactically [ ] Sepsis is a valid diagnosis as evidence by the following: (Please add rationale): [ ] Other, please specify [ ] Unable to determine (Template Last Reviewed: October 2023) MTDD
--- NOTE | 2024-12-17 14:04 | P.PN ---
Subjective Progress Note Date: 12/16/24 Reason for Consult (text): Elevated troponin History of present illness: This is a 54-year-old female with past medical history of psychiatric issues follows with [facility]. She denies cardiac history and does not follow with a senior analyst developer. Patient states that she came into the hospital due to stomach pain in the epigastric area that had been going on for few months. It at times is a stabbing type pain but now achy. She states she also had some vomiting and diarrhea with each episode of abdominal pain. She denies any blood or tarriness to her stools. The episodes are happening about once a month and getting worse. When she has the pain she states that it is a number 8 out of 10. She also has sweating, shortness of breath. Now she feels tired. Patient does have point tenderness in the epigastric area. Blood pressure 175/83, heart rate 56, pulse ox 100% on room air. Patient denies history of hypertension. Patient is seen today in the emergency center waiting for bed on the cardiac stepdown unit. Dr. Sutton discussed recommendations for cardiac catheterization which she is agreeable to move forward with. Patient is provided with nitroglycerin sublingual x 1 and GI cocktail. Patient has been started on a heparin drip. -EKG: Sinus rhythm ventricular rate of 43, no acute ST changes. -Chest x-ray: Right lower lobe infiltrate atelectasis or pneumonia -CT of the abdomen and pelvis with contrast revealed possible acute colitis -Laboratory studies: Troponin 0.148. BNP 137. AST 106, ALT 49. Lactic acid 2 .5. D-dimer 2.31. WBC 16.3 and hemoglobin 14.6. -Home cardiac medications: None 12/15 Patient seen and examined on the cardiac stepdown unit. Yesterday, patient underwent cardiac cath which revealed normal coronary arteries. Mildly elevated left-sided filling pressures. LVEF 50 to 55% with mid inferior and mid anterior wall hypokinesis possibly consistent with Takotsubo variant versus myocarditis. VQ scan low probability for pulmonary embolism. Blood pressure 114/58, heart rate 54, pulse ox 98% on room air. 12/16 Patient states that she has no abdominal pain today and she is passing gas. She was on a clear liquid diet and advance today. No complaints of chest pain or chest pressure. Blood pressure 136/80, heart rate 66, pulse ox 99% on room air. Physical examination: Gen: This is a 54-year-old female in no acute distress VS: reviewed HEENT: Head is atraumatic, normocephalic. Pupils equal, round. Sclerae is anicteric. LUNGS: Clear to auscultation. No wheezes or rhonchi. No intercostal retractions. HEART: Regular rate and rhythm. No murmur. ABDOMEN: Soft epigastric tenderness. EXTREMITIES: No pedal edema. No calf tenderness. NEUROLOGICAL: Patient is awake, alert and oriented x3. Assessment: Abdominal pain Elevated troponin, possible NSTEMI Stress-induced cardiomyopathy with mildly reduces EF Lactic acidosis Leukocytosis Elevated D-dimer, VQ scan was ordered by ER Plan: Continue aspirin x 4weeks No BB due to bradycardia Patient is cleared for discharge home and may follow up with Dr. Sutton in 4 weeks. Nurse practitioner note has been reviewed, I agree with documented findings and plan of care. Patient was seen and examined. Objective - Vital Signs Vital signs: Vital Signs Temp 98.5 F 12/16/24 08:45 Pulse 66 12/16/24 08:45 Resp 16 12/16/24 08:45 BP 136/80 12/16/24 08:45 Pulse Ox 99 12/16/24 08:45 FiO2 Intake & Output 12/15/24 12/16/24 12/16/24 18:59 06:59 18:59 Intake Total 240 240 Balance 240 240 Weight 88 kg 72.6 kg Intake: Oral 240 240 Other: Voiding Method Toilet Toilet # Voids 3 1 - Labs CBC & Chem 7: 12/15/24 07:51 12/14/24 06:58 Labs: Microbiology - Last 24 Hours (Table) 12/14/24 10:43 Blood Culture - Preliminary Blood
== END 2024-12-16 13:32 | disposition home or self-care (01) | DRG 192 ==
LOC: EC 06:43 → 3SCARD 10:04
PROVIDERS: ADMIT Internal Medicine; ATTEND Internal Medicine
PROC: B2151ZZ Fluoroscopy of Left Heart using Low Osmolar Contrast (ICD-10-PCS; 2024-12-14)
PROC: B2111ZZ Fluoroscopy of Multiple Coronary Arteries using Low Osmolar Contrast (ICD-10-PCS; 2024-12-14)
PROC: 4A023N7 Measurement of Cardiac Sampling and Pressure, Left Heart, Percutaneous Approach (ICD-10-PCS; principal; 2024-12-14 15:45)
DX: I51.81 Takotsubo syndrome (principal); F41.9 Anxiety disorder, unspecified; F90.9 Attention-deficit hyperactivity disorder, unspecified type; J44.9 Chronic obstructive pulmonary disease, unspecified; E86.0 Dehydration; E87.20 Acidosis, unspecified; F32.A Depression, unspecified; K52.89 Other specified noninfective gastroenteritis and colitis; B96.89 Other specified bacterial agents as the cause of diseases classified elsewhere; I45.81 Long QT syndrome; Z79.899 Other long term (current) drug therapy; Z88.0 Allergy status to penicillin; Z90.49 Acquired absence of other specified parts of digestive tract; Z90.710 Acquired absence of both cervix and uterus
CPT/HCPCS: 36415; 71045; 74177; 78582; 80053; 80061; 81001; 82550; 83605; 83690; 83735; 83880; 84100; 84484; 85025; 85379; 85610; 85730; 87040; 93005; 93306; 93458; 93970; 96361; 96365; 96375; 99291